=== PATIENT | male | born 1955 | race Caucasian/White ===

== ENCOUNTER → 2017-12-25 09:59 | Outpatient (CLI) | payer MEDICARE, MEDICAID | END | disposition home or self-care (01) | LOC: D.MRI 09:59 | DX: M48.02 Spinal stenosis, cervical region (principal); R26.9 Unspecified abnormalities of gait and mobility ==

== ENCOUNTER 2019-12-01 20:24 | Inpatient (IN) | payer MEDICARE, MEDICAID ==
[~2019-12-01] VITALS: Ht 172.7 cm; Wt 117.9 kg
[2019-12-01 21:30] VITALS: BP 105/52
[2019-12-01 22:02] LABS: BASOPHILS 0.1 % (0-2); EOSINOPHILS 0 % (0-7); HEMATOCRIT 31.8 % (42.0-54.0); HEMOGLOBIN 10.9 g/dL (13.5-17.5); IMMATURE GRANULOCYTES 0.6 % (0-5); LYMPHOCYTES 8.5 % (15-50); MCH 33.6 pg (26.0-34.0); MCHC 34.3 g/dL (31.0-37.0); MCV 98.1 fL (80.0-100.0); MONOCYTES 11.9 % (2-11); NEUTROPHILS 78.9 % (40-80); RBC 3.24 10x6/uL (4.20-6.10); RDW 19.1 % (11.5-14.5); WBC 8.2 10x3/uL (4.8-10.8)
[2019-12-01 22:10] LABS: INR 1.4 (0.85-1.17); PROTIME 17.1 SECONDS (11.6-15.0)
[2019-12-01 22:11] LABS: ANION GAP 13.8 mmol/L (8-16); CALCIUM 8.9 mg/dL (8.5-10.1); CARBON DIOXIDE 25.3 mmol/L (21.0-32.0); POTASSIUM - SERUM 5.1 mmol/L (3.5-5.1)
[2019-12-01] MEDS ORDERED: NEURONTIN600 MG PO (22:23)
[2019-12-01] MEDS ORDERED: K-TAB10 MEQ PO (22:24)
[2019-12-01] MEDS ORDERED: FLOMAX0.4 MG PO (22:24)
[2019-12-01] MEDS ORDERED: SENSIPAR60 MG PO (22:24)
[2019-12-01] MEDS ORDERED: LASIX40 MG PO (22:24)
[2019-12-01] MEDS ORDERED: OMEPRAZOLE20 M1 PO (22:25)
[2019-12-01] MEDS ORDERED: CELEXA20 MG PO (22:25)
[2019-12-01] MEDS ORDERED: XIGDUO XR 5 MG1 EACH PO (22:25)
[2019-12-01] MEDS ORDERED: TRAZODONE HCL150 MG PO (22:26)
[2019-12-01] MEDS ORDERED: ZANAFLEX4 MG PO (22:26)
[2019-12-01] MEDS ORDERED: ROPINIROLE HCL0.5 MG PO (22:26)
[2019-12-01 22:29] LABS: PLATELET COUNT 35 10x3/uL (130-400); PLATELET ESTIMATE DECREASED
[2019-12-01 22:30] VITALS: BP 106/45
[2019-12-01 22:34] LABS: ALBUMIN 2.4 g/dL (3.4-5.0); BILIRUBIN - TOTAL 2.45 mg/dL (0.2-1.3); C-REACTIVE PROTEIN 4.2 mg/dL (0.0-0.9); MAGNESIUM - SERUM 1.2 mg/dL (1.8-2.4); PROTEIN - SERUM 5.4 g/dL (6.4-8.2); THYROID STIMULATING HORMONE 2.33 uIU/mL (0.36-3.74)
[2019-12-01 22:41] LABS: TROPONIN-I 0.066 ng/mL (0.000-0.060)
[2019-12-01 23:30] VITALS: BP 124/52
--- NOTE | 2019-12-02 00:59 | NUR ---
RECIEVED REPORT FROM JONA VALENZUELA IN ER. ARRIVED TO FLOOR ON STRETCHER. ORIENTED AND LETHARGIC. ATTEMPTED TO CALL SPOUSE FOR INFORMATION ON MEDICATION. PT DOES NOT KNOW HIS MEDICATIONS OR WHAT TIME HE LAST TOOK THEM. SAID HIS DOES THAT. WILL ATTEMPT TO CALL HER BACK LATER.
[2019-12-02] MEDS ORDERED: ALDACTONE25 MG PO (01:13)
[2019-12-02] MEDS ORDERED: XIFAXAN550 MG PO (01:14)
[2019-12-02] MEDS ORDERED: PHENERGAN25 M1 PO (01:15)
[2019-12-02] MEDS ORDERED: HYDROCODON-ACE1 EA10 PO (01:18)
[2019-12-02] MEDS ORDERED: SYMBICORT 80-10.2 GM INH (01:27)
[2019-12-02] MEDS ORDERED: CHRONULAC30 ML PO (01:28)
[2019-12-02 02:29] LABS: UDS - AMPHET NEGATIVE QUAL (NEGATIVE); UDS - BARB NEGATIVE QUAL (NEGATIVE); UDS - BENZO NEGATIVE QUAL (NEGATIVE); UDS - COCAINE NEGATIVE QUAL (NEGATIVE); UDS - OPIATE POSITIVE QUAL (NEGATIVE); UDS - PCP NEGATIVE QUAL (NEGATIVE); UDS - THC NEGATIVE QUAL (NEGATIVE)
[2019-12-02 02:45] LABS: BILIRUBIN NEGATIVE (NEGATIVE); KETONE NEGATIVE (NEGATIVE); NITRITE NEGATIVE (NEGATIVE); UROBILINOGEN NORMAL (NORMAL)
[2019-12-02 02:47] LABS: BACTERIA MODERATE /hpf (NONE SEEN); EPITHELIAL CELLS 0-5 /hpf (0-5); RED CELLS - URINE 0-5 /hpf (0-5)
[2019-12-02 03:10] VITALS: BP 123/54
[2019-12-02 05:31] VITALS: BP 124/52; BMI 39.6
--- NOTE | 2019-12-02 05:41 | NUR ---
JOYCE VALENZUELA FROM ER CAME OVER AND STARTED IV WITH ATTEMPTS X2.
[2019-12-02 08:32] VITALS: BP 119/54
[2019-12-02 09:54] VITALS: Ht 172.7 cm; Wt 117.9 kg
[2019-12-02 11:02] LABS: CKMB 0.5 U/L (0.0-3.6); CREATINE KINASE 31 UL (21-232); TROPONIN-I 0.027 ng/mL (0.000-0.060)
[2019-12-02 12:37] VITALS: BP 137/57
[2019-12-02 18:05] LABS: CKMB 0.5 U/L (0.0-3.6); CREATINE KINASE 28 UL (21-232); TROPONIN-I 0.025 ng/mL (0.000-0.060)
[2019-12-02 21:29] VITALS: BP 125/62
[2019-12-02 23:22] LABS: CKMB 0.5 U/L (0.0-3.6); CREATINE KINASE 20 UL (21-232); TROPONIN-I 0.029 ng/mL (0.000-0.060)
[2019-12-03 04:00] VITALS: BP 112/58
[2019-12-03 06:33] LABS: BASOPHILS 0.1 % (0-2); EOSINOPHILS 0.1 % (0-7); HEMATOCRIT 27.3 % (42.0-54.0); HEMOGLOBIN 9.2 g/dL (13.5-17.5); IMMATURE GRANULOCYTES 0.6 % (0-5); LYMPHOCYTES 12.8 % (15-50); MCH 32.7 pg (26.0-34.0); MCHC 33.7 g/dL (31.0-37.0); MCV 97.2 fL (80.0-100.0); MEAN PLATELET VOLUME 13.2 fL (7.4-10.4); MONOCYTES 7.8 % (2-11); NEUTROPHILS 78.6 % (40-80); RBC 2.81 10x6/uL (4.20-6.10); RDW 19.2 % (11.5-14.5); WBC 8.3 10x3/uL (4.8-10.8)
[2019-12-03 06:40] LABS: ALBUMIN 2.3 g/dL (3.4-5.0); ANION GAP 14.2 mmol/L (8-16); BILIRUBIN - TOTAL 1.27 mg/dL (0.2-1.3); CALCIUM 9.3 mg/dL (8.5-10.1); CARBON DIOXIDE 24.4 mmol/L (21.0-32.0); POTASSIUM - SERUM 4.6 mmol/L (3.5-5.1); PROTEIN - SERUM 5.4 g/dL (6.4-8.2)
[2019-12-03 06:57] LABS: PLATELET COUNT 40 10x3/uL (130-400)
[2019-12-03 08:35] VITALS: BP 142/72
[2019-12-03 11:46] VITALS: BP 120/53
[2019-12-03 16:11] VITALS: BP 103/97
--- NOTE | 2019-12-03 19:30 | NUR ---
REPORT RECEVIED, WILL CONT POC. PT A&O, UP IN BED WATCHING TV. NO S/S OF DISTRESSED OBSERVED. RR EVEN AND UNLABORED ON RA. PT DENIES NEEDS AT THIS TIME. BED LOCKED AND LOWERED, CALL LIGHT IN REACH. WILL CONT TO MONITOR.
[2019-12-03 19:36] VITALS: BP 99/43
[2019-12-03 23:59] VITALS: BP 105/66
[2019-12-04 06:03] VITALS: BP 114/59
[2019-12-04 06:42] LABS: ALBUMIN 2.4 g/dL (3.4-5.0); ANION GAP 14.8 mmol/L (8-16); BILIRUBIN - TOTAL 0.94 mg/dL (0.2-1.3); CALCIUM 8.4 mg/dL (8.5-10.1); CARBON DIOXIDE 24.2 mmol/L (21.0-32.0); CREATININE - SERUM 1.7 mg/dL (0.6-1.3); PROTEIN - SERUM 5.4 g/dL (6.4-8.2)
[2019-12-04 06:50] LABS: BASOPHILS 0.7 % (0-2); EOSINOPHILS 0.1 % (0-7); HEMATOCRIT 28.3 % (42.0-54.0); HEMOGLOBIN 9.5 g/dL (13.5-17.5); IMMATURE GRANULOCYTES 0.5 % (0-5); LYMPHOCYTES 12.8 % (15-50); MCH 32.9 pg (26.0-34.0); MCHC 33.6 g/dL (31.0-37.0); MCV 97.9 fL (80.0-100.0); MEAN PLATELET VOLUME 12.4 fL (7.4-10.4); MONOCYTES 4.7 % (2-11); NEUTROPHILS 81.2 % (40-80); RBC 2.89 10x6/uL (4.20-6.10); RDW 19.3 % (11.5-14.5); WBC 7.3 10x3/uL (4.8-10.8)
[2019-12-04 07:08] LABS: PLATELET COUNT 47 10x3/uL (130-400)
[2019-12-04 07:52] LABS: PLATELET ESTIMATE DECREASED
[2019-12-04 08:15] VITALS: BP 115/67
[2019-12-04] MEDS ORDERED: MEDROL DOSE PACK4 MG PO (08:18)
[2019-12-04] MEDS ORDERED: ZITHROMAX250 MG PO (08:19)
--- NOTE | 2019-12-04 12:05 | MORECARE ---
CASE MANAGEMENT DISCHARGE SUMMARY PATIENT: ZAINA LEVY UNIT: [id number] ADM DATE: 12/01/19 AGE: 64 : 59 SEX: M ROOM/BED: D.2139 AUTHOR: JENNA MAYERS PHYSICIAN: REFERRING PHYSICIAN: RACHAEL BENOIT MD DATE OF SERVICE: 12/04/19 Discharge Plan Patient Name: ZAINA LEVY Facility: [facility]:[place] : 1955 Planned Disposition: Home Health Service Anticipated Discharge Date: 12/04/19 Discharge Date: Expected LOS: 3 Initial Reviewer: [email or web address] Initial Review Date: 12/01/2019 Generated: 12/04/19 1:05 pm Patient Name: ZAINA LEVY Page [id number] at 1205 All edits/amendments must be made on the electronic document DICTATION DATE: 12/04/19 1205 TOWER SUPERVISOR: HAKEEM 12/04/19 1205 RPT#: [id number] DC DATE: STATUS: ADM IN [facility] [address] [place] [address] END OF REPORT
--- NOTE | 2019-12-04 12:19 | MORECARE ---
CASE MANAGEMENT DISCHARGE SUMMARY PATIENT: ZAINA LEVY UNIT: [id number] ADM DATE: 12/01/19 AGE: 64 : 59 SEX: M ROOM/BED: D.2135 AUTHOR: JENNA MAYERS PHYSICIAN: REFERRING PHYSICIAN: RACHAEL BENOIT MD DATE OF SERVICE: 12/04/19 Discharge Plan Patient Name: ZAINA LEVY Facility: [facility]:[place] : 1955 Planned Disposition: Home Health Service Anticipated Discharge Date: 12/04/19 Discharge Date: Expected LOS: 3 Initial Reviewer: [email or web address] Initial Review Date: 12/01/2019 Generated: 12/04/19 1:18 pm Comments DCP- Discharge Planning Updated by [email or web address]: Ike Pacheco on 12/04/19 11:[address] Spoke with patient and spouse. Informed patient of MD's suggestion for rehabilitation. Patient and spouse both declined to go to rehabilitation or halfway at this time. Patient states that "...today is my anniversary and I want to go home for a few days". Notified patient that when he is ready to go to inpatient rehabilitation, he can notify his physician to coordinate admission to rehab. IMM and declination of SNF and [facility] Rehabilitation forms signed. CM will continue to follow and will assist as needed with dc plans/needs. Last DP export: 12/04/19 11:05 am Patient Name: ZAINA LEVY Page [id number] at 1219 All edits/amendments must be made on the electronic document DICTATION DATE: 12/04/19 1218 ROPE MAKING MACHINE OPERATOR: HAKEEM 12/04/19 1218 RPT#: [id number] DC DATE: STATUS: ADM IN [facility] [address] [place] [address] END OF REPORT
--- NOTE | 2019-12-04 12:19 | NUR ---
PT'S DISCHARGE INSTRUCTIONS REVIEWED AND SIGNED. IV OUT, TELEMETRY REMOVED. PT DECLINING REHAB AND WANTS TO GO HOME.
--- NOTE | 2019-12-04 15:33 | MORECARE ---
CASE MANAGEMENT DISCHARGE SUMMARY PATIENT: ZAINA LEVY UNIT: [id number] ADM DATE: 12/01/19 AGE: 64 : 59 SEX: M ROOM/BED: D.8952 AUTHOR: JENNA MAYERS PHYSICIAN: REFERRING PHYSICIAN: RACHAEL BENOIT MD DATE OF SERVICE: 12/04/19 Discharge Plan Patient Name: ZAINA LEVY Facility: [facility]:[place] : 1955 Planned Disposition: Home Health Service Anticipated Discharge Date: 12/04/19 Discharge Date: 12/04/2019 Expected LOS: 3 Initial Reviewer: [email or web address] Initial Review Date: 12/01/2019 Generated: 12/04/19 4:32 pm Comments DCP- Discharge Planning Updated by [email or web address]: Carmen Kumar on 12/04/19 2:[address] CM spoke with Joanne, with [facility] for resumption of care. faxed required information. poke with patient and spouse. Informed patient of MD's suggestion for rehabilitation. Patient and spouse both declined to go to rehabilitation or [facility] at this time. Patient states that "...today is my anniversary and I want to go home for a few days". Notified patient that when he is ready to go to inpatient rehabilitation, he can notify his physician to coordinate admission to rehab. IMM and declination of SNF and [facility] Rehabilitation forms signed. CM will continue to follow and will assist as needed with dc plans/needs. External Providers External Provider: [facility] Next Contact Date: Service Request Date: Service Type: Resolution: Reviewer: Comments: Coverage Notice Reviewer: [email or web address] Arlen Pacheco Notice Issued Date-Time: 12/04/2019 12:16 Notice Type: Patient Choice Letter Notice Delivered To: Patient Relationship to Patient: Salesperson Men'S Furnishings Name: Delivery Method: HAND - Hand Delivered Tamie Days: Prior Verbal Notification: Recipient Understood Notice: Yes Recipient Signature: Yes Med Rec Note Co-signed by Attending: Coverage Notice Comment: Refusal for Inpatient Rehabilitation and Fdc services Reviewer: [id number] Arlen Pacheco Notice Issued Date-Time: 12/04/2019 12:16 Notice Type: IM Discharge Notice Notice Delivered To: Patient Relationship to Patient: Salesperson Men'S Furnishings Name: Delivery Method: HAND - Hand Delivered Tamie Days: Prior Verbal Notification: Recipient Understood Notice: Yes Recipient Signature: Yes Med Rec Note Co-signed by Attending: Coverage Notice Comment: IMM Last DP export: 12/04/19 11:19 am Patient Name: ZAINA LEVY Page [phone] at 1533 All edits/amendments must be made on the electronic document DICTATION DATE: 12/04/19 153 CRYSTAL REPORT DEVELOPER: HAKEEM 12/04/19 153 RPT#: [id number] DC DATE:12/04/19 STATUS: DIS IN [facility] [address] [place] [address] END OF REPORT
--- NOTE | 2019-12-04 15:58 | MORECARE ---
CASE MANAGEMENT DISCHARGE SUMMARY PATIENT: ZAINA LEVY UNIT: [id number] ADM DATE: 12/01/19 AGE: 64 : 59 SEX: M ROOM/BED: D.7205 AUTHOR: JENNA MAYERS PHYSICIAN: REFERRING PHYSICIAN: RACHAEL BENOIT MD DATE OF SERVICE: 12/04/19 Discharge Plan Patient Name: ZAINA LEVY Facility: [facility]:[place] : 1955 Planned Disposition: Home Health Service Anticipated Discharge Date: 12/04/19 Discharge Date: 12/04/2019 Expected LOS: 3 Initial Reviewer: [id number] Initial Review Date: 12/01/2019 Generated: 12/04/19 4:57 pm Comments DCP- Discharge Planning Updated by [id number]: Carmen Kumar on 12/04/19 2:[address] poke with patient and spouse. Informed patient of MD's suggestion for rehabilitation. Patient and spouse both declined to go to rehabilitation or [facility] at this time. Patient states that "...today is my anniversary and I want to go home for a few days". Notified patient that when he is ready to go to inpatient rehabilitation, he can notify his physician to coordinate admission to rehab. IMM and declination of SNF and [facility] Rehabilitation forms signed. CM will continue to follow and will assist as needed with dc plans/needs. Coverage Notice Reviewer: [email or web address] Arlen Pacheco Notice Issued Date-Time: 12/04/2019 12:16 Notice Type: Patient Choice Letter Notice Delivered To: Patient Relationship to Patient: Claim Service Representative Name: Delivery Method: HAND - Hand Delivered Tamie Days: Prior Verbal Notification: Recipient Understood Notice: Yes Recipient Signature: Yes Med Rec Note Co-signed by Attending: Coverage Notice Comment: Refusal for Inpatient Rehabilitation and Long-Term services Reviewer: [id number] - Ike Pacheco Notice Issued Date-Time: 12/04/2019 12:16 Notice Type: IM Discharge Notice Notice Delivered To: Patient Relationship to Patient: Claim Service Representative Name: Delivery Method: HAND - Hand Delivered Tamie Days: Prior Verbal Notification: Recipient Understood Notice: Yes Recipient Signature: Yes Med Rec Note Co-signed by Attending: Coverage Notice Comment: IMM Last DP export: 12/04/19 2:33 pm Patient Name: ZAINA LEVY Page [phone] at 1558 All edits/amendments must be made on the electronic document DICTATION DATE: 12/04/191556 PROGRAM REP: HAKEEM 12/04/191556 RPT#: [id number] DC DATE:12/04/19 STATUS: DIS IN [place] [id number] [place] [address] END OF REPORT
--- NOTE | 2019-12-04 16:12 | MORECARE ---
CASE MANAGEMENT DISCHARGE SUMMARY PATIENT: ZAINA LEVY UNIT: [id number] ADM DATE: 12/01/19 AGE: 64 : 59 SEX: M ROOM/BED: D.8507 AUTHOR: TALIB,DOC PHYSICIAN: REFERRING PHYSICIAN: RACHAEL BENOIT MD DATE OF SERVICE: 12/04/19 Discharge Plan Patient Name: ZAINA LEVY Facility: [facility]:[place] : 1955 Planned Disposition: Home Health Service Anticipated Discharge Date: 12/04/19 Discharge Date: 12/04/2019 Expected LOS: 3 Initial Reviewer: [email or web address] Initial Review Date: 12/01/2019 Generated: 12/04/19 5:12 pm Comments DCP- Discharge Planning Updated by [id number]: Carmen Kumar on 12/04/19 2:[address] poke with patient and spouse. Informed patient of MD's suggestion for rehabilitation. Patient and spouse both declined to go to rehabilitation or residential at this time. Patient states that "...today is my anniversary and I want to go home for a few days". Notified patient that when he is ready to go to inpatient rehabilitation, he can notify his physician to coordinate admission to rehab. IMM and declination of SNF and [facility] Rehabilitation forms signed. CM will continue to follow and will assist as needed with dc plans/needs. DCPIA - Discharge Planning Initial Assessment Updated by [id number]: Carmen Kumar on 12/04/19 4:09 pm * Is the patient Alert and Oriented? Yes * PCP Dr. Benoit [facility] * Preadmission Environment Home with Family * ADLs Partial Dependent * Equipment Cane Rolling Walker Wheelchair * List name and contact numbers for known caregivers / representatives who currently or will assist patient after discharge: Eren Levy () [phone] * Verbal permission to speak to the caregivers and representatives has been obtained from the patient. Yes * Community resources currently utilized Home Health * Please name any agencies selected above. [facility] * Additional services required to return to the preadmission environment? Yes * Can the patient safely return to the preadmission environment? Yes * Has this patient been hospitalized within the prior 30 days at any hospital? No Coverage Notice Reviewer: [id number] Arlen Pacheco Notice Issued Date-Time: 12/04/2019 12:16 Notice Type: Patient Choice Letter Notice Delivered To: Patient Relationship to Patient: Psychology Tech Name: Delivery Method: HAND - Hand Delivered Tamie Days: Prior Verbal Notification: Recipient Understood Notice: Yes Recipient Signature: Yes Med Rec Note Co-signed by Attending: Coverage Notice Comment: Refusal for Inpatient Rehabilitation and Correction services Reviewer: [id number] Arlen Pacheco Notice Issued Date-Time: 12/04/2019 12:16 Notice Type: IM Discharge Notice Notice Delivered To: Patient Relationship to Patient: Psychology Tech Name: Delivery Method: HAND - Hand Delivered Tamie Days: Prior Verbal Notification: Recipient Understood Notice: Yes Recipient Signature: Yes Med Rec Note Co-signed by Attending: Coverage Notice Comment: IMM Last DP export: 12/04/19 2:58 pm Patient Name: ZAINA LEVY Page [phone] at 1612 All edits/amendments must be made on the electronic document DICTATION DATE: 12/04/19 1612 ENTRY LEVEL SOFTWARE ENGINEER: HAKEEM 12/04/19 1612 RPT#: [id number] DC DATE:12/04/19 STATUS: DIS IN [facility] [address] [place] [address] END OF REPORT
--- NOTE | 2019-12-04 16:40 | MORECARE ---
CASE MANAGEMENT DISCHARGE SUMMARY PATIENT: ZAINA LEVY UNIT: [id number] ADM DATE: 12/01/19 AGE: 64 : 59 SEX: M ROOM/BED: D.0506 AUTHOR: TALIBDOC PHYSICIAN: REFERRING PHYSICIAN: RACHAEL BENOIT MD DATE OF SERVICE: 12/04/19 Discharge Plan Patient Name: ZAINA LEVY Facility: [facility]:[place] : 1955 Planned Disposition: Home Health Service Anticipated Discharge Date: 12/04/19 Discharge Date: 12/04/2019 Expected LOS: 3 Initial Reviewer: [email or web address] Initial Review Date: 12/01/2019 Generated: 12/04/19 5:39 pm Comments DCP- Discharge Planning Updated by [id number]: Carmen Kumar on 12/04/19 3:[address] CM met with patient regarding DC plans. Patient is in agreement with same. Patient lives independently with his , Eren Levy ([phone]). PCP: Dr. Benoit. [facility] DME: [facility], w/c, shower chair. CM discussed HHS, SNF, Rehab services. Patient [facility] with [facility] to resume. Patient's spouse will drive him home upon DC. CM contacted Joanne, with [facility] and faxed required information. CM is available for DC plans PRN. Patient was recently discharged from [facility] approximately one month ago. No other needs voiced. DCP- Discharge Planning Updated by [email or web address]: Carmen Kumar on 12/04/19 2:[address] poke with patient and spouse. Informed patient of MD's suggestion for rehabilitation. Patient and spouse both declined to go to rehabilitation or intermediate at this time. Patient states that "...today is my anniversary and I want to go home for a few days". Notified patient that when he is ready to go to inpatient rehabilitation, he can notify his physician to coordinate admission to rehab. IMM and declination of SNF and [facility] forms signed. CM will continue to follow and will assist as needed with dc plans/needs. DCPIA - Discharge Planning Initial Assessment Updated by [email or web address]: Carmen Winnlroy on 12/04/19 4:09 pm * Is the patient Alert and Oriented? Yes * PCP Dr. Benoit * [facility] * Preadmission Environment Home with Family * ADLs Partial Dependent * Equipment Cane Rolling Walker Wheelchair * List name and contact numbers for known caregivers / representatives who currently or will assist patient after discharge: Eren Levy () [phone] * Verbal permission to speak to the caregivers and representatives has been obtained from the patient. Yes * Community resources currently utilized Home Health * Please name any agencies selected above. [facility] * Additional services required to return to the preadmission environment? Yes * Can the patient safely return to the preadmission environment? Yes * Has this patient been hospitalized within the prior 30 days at any hospital? No Coverage Notice Reviewer: [id number] Arlen Pacheco Notice Issued Date-Time: 12/04/2019 12:16 Notice Type: Patient Choice Letter Notice Delivered To: Patient Relationship to Patient: Automotive Welder Name: Delivery Method: HAND - Hand Delivered Tamie Days: Prior Verbal Notification: Recipient Understood Notice: Yes Recipient Signature: Yes Med Rec Note Co-signed by Attending: Coverage Notice Comment: Refusal for Inpatient Rehabilitation and Fdc services Reviewer: [id number] Arlen Pacheco Notice Issued Date-Time: 12/04/2019 12:16 Notice Type: IM Discharge Notice Notice Delivered To: Patient Relationship to Patient: Automotive Welder Name: Delivery Method: HAND - Hand Delivered Tamie Days: Prior Verbal Notification: Recipient Understood Notice: Yes Recipient Signature: Yes Med Rec Note Co-signed by Attending: Coverage Notice Comment: IMM Last DP export: 12/04/19 3:12 pm Patient Name: ZAINA LEVY Page [phone] at 1640 All edits/amendments must be made on the electronic document DICTATION DATE: 12/04/19 1639 ELECTRIFIER OPERATOR: HAKEEM 12/04/19 1639 RPT#: [id number] DC DATE:12/04/19 STATUS: DIS IN [facility] [address] [place] [address] END OF REPORT
== END 2019-12-04 12:21 | disposition home health service (06) | DRG 190 ==
LOC: D.ER 20:24 → D.M2 22:48
PROVIDERS: Family Medicine; ADMIT Family Medicine; ATTEND Family Medicine
DX: J44.0 Chronic obstructive pulmonary disease with (acute) lower respiratory infection (principal); J18.9 Pneumonia, unspecified organism; N39.0 Urinary tract infection, site not specified; J44.1 Chronic obstructive pulmonary disease with (acute) exacerbation; D69.6 Thrombocytopenia, unspecified; K74.60 Unspecified cirrhosis of liver; N18.9 Chronic kidney disease, unspecified; Z87.891 Personal history of nicotine dependence; E66.01 Morbid (severe) obesity due to excess calories; Z68.39 Body mass index [BMI] 39.0-39.9, adult

== ENCOUNTER 2019-12-27 15:12 | Inpatient (IN) | payer MEDICARE, MEDICAID ==
[~2019-12-27] VITALS: Ht 172.7 cm; Wt 115.1 kg
[~2019-12-27 15:12] MED LIST: ALDACTONE25 MG PO; CELEXA20 MG PO; CHRONULAC30 ML PO; FLOMAX0.4 MG PO; HYDROCODON-ACE1 EA10 PO; K-TAB10 MEQ PO; LASIX40 MG PO; MEDROL DOSE PACK4 MG PO; NEURONTIN600 MG PO; OMEPRAZOLE20 M1 PO; PHENERGAN25 M1 PO; ROPINIROLE HCL0.5 MG PO; SENSIPAR60 MG PO; SYMBICORT 80-10.2 GM INH; TRAZODONE HCL150 MG PO; XIFAXAN550 MG PO; XIGDUO XR 5 MG1 EACH PO; ZANAFLEX4 MG PO; ZITHROMAX250 MG PO
[2019-12-27 15:47] VITALS: BP 127/59
[2019-12-27 16:06] LABS: APTT 31.7 SECONDS (22.8-39.4); INR 1.22 (0.85-1.17); PROTIME 15.3 SECONDS (11.6-15.0)
[2019-12-27 16:07] LABS: BASOPHILS 0.6 % (0-2); CALC OSMOLALITY 277 mosm/kg (275-300); CARBON DIOXIDE 26.6 mmol/L (21.0-32.0); CHLORIDE - SERUM 103 mmol/L (98-107); EOSINOPHILS 4.5 % (0-7); GLUCOSE 83 mg/dL (74-106); HEMOGLOBIN 10.4 g/dL (13.5-17.5); IMMATURE GRANULOCYTES 2.2 % (0-5); LYMPHOCYTES 45.2 % (15-50); MCH 34.4 pg (26.0-34.0); MCHC 34.7 g/dL (31.0-37.0); MCV 99.3 fL (80.0-100.0); NEUTROPHILS 40.5 % (40-80); POTASSIUM - SERUM 4.3 mmol/L (3.5-5.1); RBC 3.02 10x6/uL (4.20-6.10); RDW 17.8 % (11.5-14.5); SODIUM 138 mmol/L (136-145); UREA NITROGEN 22 mg/dL (7-18); WBC 3.1 10x3/uL (4.8-10.8); eGFR NON AFRICAN AMERICAN 36 mL/min (90-120)
[2019-12-27 16:17] LABS: PLATELET COUNT 40 10x3/uL (130-400)
[2019-12-27 16:24] LABS: ALBUMIN 2.5 g/dL (3.4-5.0); ALKALINE PHOSPHATASE 309 U/L (30-120); ALT (SGPT) 40 U/L (10-68); BILIRUBIN - TOTAL 1.57 mg/dL (0.2-1.3); CREATINE KINASE 49 UL (21-232); MAGNESIUM - SERUM 1.5 mg/dL (1.8-2.4); PRO BNP 212 pg/mL (0-125); PROTEIN - SERUM 5.7 g/dL (6.4-8.2); TROPONIN-I 0.034 ng/mL (0.000-0.060)
[2019-12-27 17:04] VITALS: BP 125/77
--- NOTE | 2019-12-27 18:12 | NUR ---
URINS SAMPLE OBTAINED VIA CASTANON AND SENT TO LAB
[2019-12-27 18:15] LABS: PLATELET ESTIMATE DECREASED
[2019-12-27 18:33] VITALS: BP 91/63
[2019-12-27 18:39] LABS: BILIRUBIN NEGATIVE (NEGATIVE); KETONE NEGATIVE (NEGATIVE); NITRITE NEGATIVE (NEGATIVE); UROBILINOGEN NORMAL mg/dL (< 2)
[2019-12-27 18:40] LABS: BACTERIA MANY HPF (NONE SEEN); WHITE CELLS - URINE 0-5 HPF (0-1)
[2019-12-27 20:38] VITALS: BP 164/60
--- NOTE | 2019-12-27 21:38 | NUR ---
PAGED ADMITTING DR ABOUT PTS ORAL MEDICATION.
--- NOTE | 2019-12-27 22:04 | NUR ---
PROVIDER CONTACTED HOLD PTS PO MEDS. ORDERS FOR LASIX 40 MG IV BID. NS INFUSION DECREASED TO 50 MLS/HR.
[2019-12-27 22:18] VITALS: BP 129/69
[2019-12-27 23:18] VITALS: BP 121/69
[2019-12-28] VITALS (7 sets, daily range): BP systolic 130–148; BP diastolic 61–84; BMI 38.9
--- NOTE | 2019-12-28 00:41 | NUR ---
PT ARRIVED ON UNIT VIA STRETCHER, ESCORTED BY SPOUSE AND ER NURSE. TRANSFERRED TO BED USING SLIDEBOARD. POSITIONED FOR COMFORT. RE-STARTED IV FLUIDS PER ORDER.
--- NOTE | 2019-12-28 00:45 | NUR ---
HOME MEDICATION RECONCILLIATION COMPLETE. COPY OF LIST FROM SPOUSE PLACED IN CHART.
[2019-12-28] MEDS ORDERED: CALCITONIN-SAL3.7 ML NASAL (00:50)
--- NOTE | 2019-12-28 00:55 | NUR ---
APPLIED ELLE'S TO REDNESS ON BUTTOCKS AND TURNED TO RIGHT SIDE USING PILLOW. POSITIONED FOR COMFORT.
--- NOTE | 2019-12-28 01:13 | NUR ---
ADMISSION ASSESSMENT AND HISTORY COMPLETE.
[2019-12-28 07:16] LABS: BASOPHILS 0.6 % (0-2); EOSINOPHILS 2.5 % (0-7); HEMATOCRIT 30.2 % (42.0-54.0); HEMOGLOBIN 10.5 g/dL (13.5-17.5); IMMATURE GRANULOCYTES 1.5 % (0-5); LYMPHOCYTES 38.2 % (15-50); MCH 34.5 pg (26.0-34.0); MCHC 34.8 g/dL (31.0-37.0); MCV 99.3 fL (80.0-100.0); MEAN PLATELET VOLUME 11.2 fL (7.4-10.4); MONOCYTES 6.2 % (2-11); RBC 3.04 10x6/uL (4.20-6.10); RDW 18.2 % (11.5-14.5); WBC 3.3 10x3/uL (4.8-10.8)
[2019-12-28 07:23] LABS: PLATELET COUNT 72 10x3/uL (130-400)
[2019-12-28 07:36] LABS: APTT 28.7 SECONDS (22.8-39.4); INR 1.24 (0.85-1.17); PROTIME 15.5 SECONDS (11.6-15.0)
[2019-12-28 08:56] LABS: ALBUMIN 2.4 g/dL (3.4-5.0); ANION GAP 11.1 mmol/L (8-16); BILIRUBIN - DIRECT 1.04 mg/dL (0.00-0.30); BILIRUBIN - INDIRECT 0.93 mg/dL (0.00-1.00); BILIRUBIN - TOTAL 1.97 mg/dL (0.2-1.3); CALCIUM 9.2 mg/dL (8.5-10.1); CREATININE - SERUM 1.9 mg/dL (0.6-1.3); MAGNESIUM - SERUM 1.6 mg/dL (1.8-2.4); POTASSIUM - SERUM 4.1 mmol/L (3.5-5.1); PROTEIN - SERUM 5.4 g/dL (6.4-8.2); TROPONIN-I 0.044 ng/mL (0.000-0.060)
--- NOTE | 2019-12-28 09:00 | NUR ---
UNRESPONSIVE TO STIMULI WITH RESP EVEN AND UNLABORED. ABDOMEN DISTENDED WITH BOWEL SOUNDS HYPOACTIVE X4 ANTERIOR. CASTANON CATH PATIENT WITH [place] URINE. INCONTINENT OF STOOL WITH PERICARE DONE WITH MEPILEX DRESSING TO COCCYX FOR ERRYTHEMA. TURNED AND REPOSITIONED FOR COMFORT. IVF INFUSING TO RT. F/A W/O ANY S/S OF INFECTION/INFILTRATION. ENCOURZAGED FAMILY TO USE CALL LIGHT FOR ASSSIT.
[2019-12-28 16:21] LABS: BILIRUBIN NEGATIVE (NEGATIVE); KETONE NEGATIVE (NEGATIVE); NITRITE NEGATIVE (NEGATIVE); UROBILINOGEN NORMAL mg/dL (< 2)
[2019-12-28 16:22] LABS: BACTERIA MODERATE HPF (NONE SEEN); EPITHELIAL CELLS 0-5 /hpf (0-5); WHITE CELLS - URINE >50 HPF (0-1)
--- NOTE | 2019-12-28 19:00 | NUR ---
BEDSIDE REPORT RECEIVED AND CARE OF PT ASSUMED. PT LYING IN LOW FRAGOSO'S POSITION WITH EYES CLOSED AND EASY RESPIRATIONS. SALINE LOCKED IV TO RIGHT HAND. IS AT BEDSIDE.
--- NOTE | 2019-12-28 21:41 | NUR ---
HELD PO MEDS PT STILL WITH DECREASED LOC...HE HAS OPENED EYES AND SPOKE AT FEW WORDS TO HIS SPOUSE JACKELYN. WILL CONTINUE TO MONITOR CLOSELY.
[2019-12-29 01:23] VITALS: BP 142/66
[2019-12-29 05:31] VITALS: BP 151/61
[2019-12-29 05:31] LABS: BASOPHILS 0.5 % (0-2); EOSINOPHILS 2.7 % (0-7); HEMATOCRIT 29.3 % (42.0-54.0); HEMOGLOBIN 9.8 g/dL (13.5-17.5); IMMATURE GRANULOCYTES 1.4 % (0-5); LYMPHOCYTES 32.3 % (15-50); MCH 33.7 pg (26.0-34.0); MCHC 33.4 g/dL (31.0-37.0); MCV 100.7 fL (80.0-100.0); MEAN PLATELET VOLUME 11.2 fL (7.4-10.4); MONOCYTES 8.7 % (2-11); NEUTROPHILS 54.4 % (40-80); RBC 2.91 10x6/uL (4.20-6.10); RDW 18.4 % (11.5-14.5)
[2019-12-29 05:38] LABS: WBC 4.2 10x3/uL (4.8-10.8)
[2019-12-29 05:39] LABS: PLATELET COUNT 58 10x3/uL (130-400)
[2019-12-29 05:50] LABS: ALBUMIN 2.4 g/dL (3.4-5.0); ANION GAP 13.9 mmol/L (8-16); BILIRUBIN - TOTAL 1.94 mg/dL (0.2-1.3); CALCIUM 9.3 mg/dL (8.5-10.1); CARBON DIOXIDE 25.3 mmol/L (21.0-32.0); CREATININE - SERUM 2.1 mg/dL (0.6-1.3); POTASSIUM - SERUM 4.2 mmol/L (3.5-5.1); PROTEIN - SERUM 5.2 g/dL (6.4-8.2)
[2019-12-29 08:36] VITALS: BP 137/77
--- NOTE | 2019-12-29 09:00 | NUR ---
PATIENT ALWAKE AND ORIENTED X3. ABLE TO TAKE MEDS WHOLE AND EAT BREAKFAST WITH ASSIST. GENERALIZED EDEMA NOTED TO BUE AND BLE. IV S/L TO RIGHT HAND WITH NO S/S OF INFECTION/INFILTRATION INCONTINENT OF STOOL WITH MODERATE SOFT BM NOTED WITH PERICARE DONE AND REPOSITIONED FOR COMFORT. FAMILY PRESENT AND ENCOURAGED TO USE CALL LIGHT FOR ASSSIT.
--- NOTE | 2019-12-29 11:00 | NUR ---
PATIENT RECEIVED PARENCENTESIS WITH STAFF STATING REMOVED OF 15OOCC FLUID. NO CHANGE IN COGNITION AT THIS TIME AND STABLE.
[2019-12-29 11:59] LABS: PROTEIN - BODY FLUID 0.5 G/DL
[2019-12-29 12:02] LABS: NEUT - BF 16 %
[2019-12-29 12:03] LABS: MACROPHAGES BF 21 %
[2019-12-29 16:22] VITALS: BP 147/62
--- NOTE | 2019-12-29 19:00 | NUR ---
BEDSIDE REPORT RECEIVED AND CARE OF PT ASSUMED. PT LYING IN LOW FRAGOSO'S POSITION VISITING WITH SPOUSE. PT ALERT AND ORIENTED AND EATING FOOD BROUGHT BY SPOUSE AT THIS TIME. IV TO RIGHT HAND SALINE LOCKED. CASTANON CATHETER DRAINING TO GRAVITY WITH YELLOW URINE IN COLLECTION BAG. WILL MONITOR FOR NEEDS.
--- NOTE | 2019-12-29 20:31 | NUR ---
HS MEDICATIONS GIVEN...PT ABLE TO SWALLOW MEDS AND WATER WITHOUT DIFFICULTY. GAVE NICOTINE PATCH TO LEFT DELTOID PER PT REQUEST.
[2019-12-29 21:08] VITALS: BP 136/67
--- NOTE | 2019-12-30 00:15 | NUR ---
PT REQUESTING PAIN MEDICATION FOR LEFT SHOULDER PAIN. EXPLAINED THAT MD HAS PLACED HOLD ON ALL SEDATING MEDICATIONS. MADE HOT COMPRESS TO PLACED ON SHOULDER. WILL CONTINUE TO MONITOR FOR NEEDS.
[2019-12-30 01:22] VITALS: BP 124/58
[2019-12-30 05:30] VITALS: BP 143/56
[2019-12-30 06:15] LABS: ALBUMIN 2.2 g/dL (3.4-5.0); ANION GAP 10.3 mmol/L (8-16); BILIRUBIN - TOTAL 1.61 mg/dL (0.2-1.3); CALCIUM 9.3 mg/dL (8.5-10.1); CARBON DIOXIDE 26.7 mmol/L (21.0-32.0); PROTEIN - SERUM 5.3 g/dL (6.4-8.2)
[2019-12-30 07:24] LABS: BASOPHILS 0.4 % (0-2); HEMATOCRIT 28.2 % (42.0-54.0); HEMOGLOBIN 9.3 g/dL (13.5-17.5); IMMATURE GRANULOCYTES 2.9 % (0-5); LYMPHOCYTES 32.4 % (15-50); MCH 33.5 pg (26.0-34.0); MCV 101.4 fL (80.0-100.0); MEAN PLATELET VOLUME 11.3 fL (7.4-10.4); MONOCYTES 9.9 % (2-11); NEUTROPHILS 52.4 % (40-80); RBC 2.78 10x6/uL (4.20-6.10); RDW 18.4 % (11.5-14.5); WBC 4.5 10x3/uL (4.8-10.8)
[2019-12-30 07:29] LABS: PLATELET COUNT 47 10x3/uL (130-400)
--- NOTE | 2019-12-30 07:43 | NUR ---
PATIENT IN BED, FAMILY AT BEDSIDE. DENIES NEEDS AT THIS TIME. FREE FROM SIGNS OF DISTRESS. WILL CONTINUE TO MONITOR.
[2019-12-30 09:05] VITALS: BP 140/56
[2019-12-30 12:47] VITALS: BP 126/51
--- NOTE | 2019-12-30 13:08 | NUR ---
Nutrition follwo-up: Pt receiving a renal diet; po intake is improving as pt is eating food from spouse. Wt: 255# Pt much more alert today. Labs reviewed Will continue to provide food choices and honor food preferences within diet restrictions. RDN following.
[2019-12-30 15:00] VITALS: BP 158/92
--- NOTE | 2019-12-30 19:00 | NUR ---
BEDSIDE REPORT RECEIVED AND CARE OF PT ASSUMED. PT LYING IN HIGH FRAGOSO'S POSITION VISIGINT WITH SPOUSE. IV TO RIGHT HAND PATENT WITH NS INFUSING AT KVO. CASTANON CATHETER DRAINING TO GRAVITY WITH YELLOW URINE IN COLLECTION BAG. WILL MONITOR FOR NEEDS. IS AT BEDSIDE.
[2019-12-30 20:31] VITALS: BP 128/58
[2019-12-31 00:29] VITALS: BP 118/51
[2019-12-31 04:00] VITALS: BP 124/60
[2019-12-31 05:10] LABS: ALBUMIN 2.2 g/dL (3.4-5.0); ANION GAP 10.4 mmol/L (8-16); BILIRUBIN - TOTAL 1.34 mg/dL (0.2-1.3); CALCIUM 9.1 mg/dL (8.5-10.1); CARBON DIOXIDE 27.6 mmol/L (21.0-32.0); CREATININE - SERUM 2.1 mg/dL (0.6-1.3); PROTEIN - SERUM 5.1 g/dL (6.4-8.2)
[2019-12-31 06:17] LABS: BASOPHILS 0.3 % (0-2); EOSINOPHILS 3.2 % (0-7); HEMATOCRIT 26.3 % (42.0-54.0); HEMOGLOBIN 8.9 g/dL (13.5-17.5); IMMATURE GRANULOCYTES 3.8 % (0-5); LYMPHOCYTES 32.7 % (15-50); MCH 34.4 pg (26.0-34.0); MCHC 33.8 g/dL (31.0-37.0); MCV 101.5 fL (80.0-100.0); MEAN PLATELET VOLUME 11.1 fL (7.4-10.4); RBC 2.59 10x6/uL (4.20-6.10); RDW 18.1 % (11.5-14.5)
[2019-12-31 06:18] LABS: WBC 3.2 10x3/uL (4.8-10.8)
[2019-12-31 06:28] LABS: PLATELET COUNT 45 10x3/uL (130-400)
[2019-12-31 06:40] LABS: PLATELET ESTIMATE DECREASED
--- NOTE | 2019-12-31 07:00 | NUR ---
RESTING IN BED WITH EYES CLOSED. RESPIRATIONS EVEN AND UNLABORED. NO S/S OF ACUTE DISTRESS NOTED. POD #1 PARACENTESIS. CASTANON CATHETER PRESENT. IV TO RIGHT HAND, NS INFUSING @ KVO. SITE PATENT WITHOUT REDNESS OR SWELLING. SCDS ON. CALL LIGHT IN REACH. WILL CONTINUE TO MONITOR.
[2019-12-31 08:23] VITALS: BP 132/59
--- NOTE | 2019-12-31 10:18 | NUR ---
I have reviewed this patient and I concur with the Shift Assessment completed by the Licensed Practical Nurse today this shift.
[2019-12-31 11:54] VITALS: BP 120/62
[2019-12-31 17:34] VITALS: BP 142/78
--- NOTE | 2019-12-31 17:55 | NUR ---
SITTING UP IN BED EATING SUPPER. NO C/O PAIN. NO S/S OF ACUTE DISTRESS NOTED. AT BEDSIDE. DENIES ANY NEEDS AT THIS TIME. CALL LIGHT IN REACH. WILL CONTINUE TO MONITOR.
[2019-12-31 21:26] VITALS: BP 145/53
--- NOTE | 2019-12-31 23:45 | NUR ---
PT IN BED, NO NEEDS NOTED, RESPIRATIONS EVEN/UNLABORED, SAFETY PRECAUTIONS IN PLACE, FLUIDS/CALL LIGHT WITHIN REACH, AT BEDSIDE, IV PATENT, NS AT KVO
[2020-01-01] VITALS: BP 133/56
[2020-01-01 04:00] VITALS: BP 123/49
[2020-01-01 06:39] LABS: BASOPHILS 0.3 % (0-2); EOSINOPHILS 2.5 % (0-7); HEMATOCRIT 26.6 % (42.0-54.0); HEMOGLOBIN 8.8 g/dL (13.5-17.5); IMMATURE GRANULOCYTES 3.8 % (0-5); LYMPHOCYTES 35.7 % (15-50); MCH 33.3 pg (26.0-34.0); MCHC 33.1 g/dL (31.0-37.0); MCV 100.8 fL (80.0-100.0); MEAN PLATELET VOLUME 10.4 fL (7.4-10.4); MONOCYTES 12.9 % (2-11); NEUTROPHILS 44.8 % (40-80); RBC 2.64 10x6/uL (4.20-6.10); RDW 17.8 % (11.5-14.5); WBC 3.2 10x3/uL (4.8-10.8)
[2020-01-01 06:46] LABS: PLATELET COUNT 46 10x3/uL (130-400)
--- NOTE | 2020-01-01 07:00 | NUR ---
RESTING IN BED WITH EYES CLOSED. RESPIRATIONS EVEN AND UNLABORED. NO S/S OF ACUTE DISTRESS NOTED. CALL LIGHT IN REACH. WILL CONTINUE TO MONITOR.
[2020-01-01 07:13] LABS: ALBUMIN 2.1 g/dL (3.4-5.0); ANION GAP 11.3 mmol/L (8-16); BILIRUBIN - TOTAL 1.15 mg/dL (0.2-1.3); CALCIUM 9.2 mg/dL (8.5-10.1); CARBON DIOXIDE 25.5 mmol/L (21.0-32.0); CREATININE - SERUM 1.9 mg/dL (0.6-1.3); POTASSIUM - SERUM 3.8 mmol/L (3.5-5.1)
[2020-01-01 07:14] LABS: PLATELET ESTIMATE DECREASED
[2020-01-01 08:53] VITALS: BP 128/50
[2020-01-01 12:01] VITALS: BP 130/58
--- NOTE | 2020-01-01 14:03 | NUR ---
OT NOTE: PT PERFORMED MUCH BETTER TODAY COMPARED TO YESTERDAY. HE WAS ABLE TO PERFORM ROLLING FROM SIDE TO SIDE WITH MIN ASSIST; ABLE TO MAINTAIN SIDELYING POSITION FOR SEVERAL MIN ON EACH SIDE WITH MIN ASSIST. SUPINE TO SIT WITH MAX ASSIST. GOOD STATIC BALANCE/POOR DYNAMIC BALANCE. UE AROM EXS WHILE ON EOB. PT INCONT OF BOWEL; PT CLEANED WITH TOTAL ASSIST; ABLE TO FEED SELF WITH SET UP; ABLE TO WASH HANDS AND FACE WITH CLOTH AND SET UP; PT LESS CONFUSED AND MORE CONVERSIVE TODAY. BRYCE LEVI, OTR/L [phone]
--- NOTE | 2020-01-01 15:07 | NUR ---
I have reviewed this patient and I concur with the Shift Assessment completed by the Licensed Practical Nurse today this shift.
[2020-01-01 16:23] VITALS: BP 143/63
[2020-01-01 20:00] VITALS: BP 143/58
--- NOTE | 2020-01-01 20:00 | NUR ---
REPORT RECIEVED AND ROUNDING COMPLETE. PATIENT LAYING IN BED IN HIGH FOWLERS, AT BEDSIDE. PATIENT HAS A RIGHT HAND PIV THAT IS SALINE LOCKED AT THIS TIME, CASTANON CATH IN PLACE WITH URINE IN BAG, PATIENT HAS PITTING EDEMA TO LOWER EXTERMITIES. PATIENT ASKS THAT HIS PAIN MAEDICATIONS BE GIVEN WITH NIGHT TIME MEDICATIONS. WILL FOLLOW PER MAR. NO OTHER NEEDS VOICED AT THIS TIME. NO DISTRESS NOTED. CALL LIGHT WITHIN REACH AND BED IN LOWEST LOCKED POSITION.
[2020-01-02 04:00] VITALS: BP 122/48
[2020-01-02 05:05] LABS: BASOPHILS 0.3 % (0-2); HEMATOCRIT 26.2 % (42.0-54.0); HEMOGLOBIN 8.5 g/dL (13.5-17.5); LYMPHOCYTES 38.5 % (15-50); MCH 32.7 pg (26.0-34.0); MCHC 32.4 g/dL (31.0-37.0); MCV 100.8 fL (80.0-100.0); MONOCYTES 9.4 % (2-11); NEUTROPHILS 45.8 % (40-80); RDW 17.7 % (11.5-14.5); WBC 3.3 10x3/uL (4.8-10.8)
[2020-01-02 05:09] LABS: PLATELET COUNT 46 10x3/uL (130-400)
[2020-01-02 05:24] LABS: ALBUMIN 2.1 g/dL (3.4-5.0); ANION GAP 8.6 mmol/L (8-16); BILIRUBIN - TOTAL 1.18 mg/dL (0.2-1.3); CARBON DIOXIDE 27.1 mmol/L (21.0-32.0); CREATININE - SERUM 1.8 mg/dL (0.6-1.3); POTASSIUM - SERUM 3.7 mmol/L (3.5-5.1); PROTEIN - SERUM 4.9 g/dL (6.4-8.2)
[2020-01-02 09:22] VITALS: BP 119/71
[2020-01-02 13:19] VITALS: BP 132/78
--- NOTE | 2020-01-02 13:47 | NUR ---
OT NOTE: PT DOING VERY WELL TODAY. PT UP IN BED FEEDING SELF WITH SET UP; ABLE TO WASH HANDS AND FACE WITH CLOTH AND SET UP; BED MOB WITH MIN/MOD ASSIST; PT WAS ABLE TO PERFORM SIT TO STAND WITH WALKER AND MIN/MOD ASSIST; ABLE TO TAKE A FEW SIDE STEPS ADN SEVERAL STEPS FORWARD ADN BACKWARDS WTIH ONE REST BREAK. PERFORMED SEVERAL SIT TO STANDS FOR STRENGTH; BACK TO BED WITH MIN ASSIST FOR LE MGMT. ASKED PT ABOUT THE CHARLES LIFT THAT HIS REPORTED HAVING TO USE AT HOME. PT STATED THAT IT WAS ONLY THERE IF HE HAD FALLEN INTO FLOOR BUT THAT HE WAS USUALLY ABLE TO TAKE A FEW STEPS. HE DID REPORT THAT SOME DAYS WERE MUCH BETTER THAN OTHERS. TODAY WAS A VERY GOOD DAY.. WILL GET PT UP TO CHAIR TOMORROW. BRYCE LEVI, OTR/L [phone]
--- NOTE | 2020-01-02 14:50 | MORECARE ---
CASE MANAGEMENT DISCHARGE SUMMARY PATIENT: ZAINA LEVY UNIT: [id number] ADM DATE: 12/27/19 AGE: 64 : 59 SEX: M ROOM/BED: D.2214 AUTHOR: JENNA MAYERS PHYSICIAN: REFERRING PHYSICIAN: RACHAEL BENOIT MD DATE OF SERVICE: 01/02/20 Discharge Plan Patient Name: ZAINA LEVY Facility: [facility]:[place] : 1955 Planned Disposition: Inpatient Rehab Anticipated Discharge Date: Discharge Date: Expected LOS: Initial Reviewer: [id number] Initial Review Date: 12/27/2019 Generated: 01/02/20 3:49 pm Coverage Notice Reviewer: [id number] - Regina Pham Notice Issued Date-Time: 01/02/2020 14:35 Notice Type: Patient Choice Letter Notice Delivered To: Family Member Relationship to Patient: Spouse Supervisor Lump Room Name: BLAISE Delivery Method: HAND - Hand Delivered Tamie Days: Prior Verbal Notification: Recipient Understood Notice: Yes Recipient Signature: Yes Med Rec Note Co-signed by Attending: Coverage Notice Comment: [facility]PATIENT REHAB AT [facility] Patient Name: ZAINA LEVY Page [id number] at 1450 All edits/amendments must be made on the electronic document DICTATION DATE: 01/02/201448 COMPUTER SCIENCE INTERN: HAKEEM 01/02/20 144 RPT#: [id number] DC DATE: STATUS: ADM IN [facility] [address] [place] [address] END OF REPORT
--- NOTE | 2020-01-02 14:58 | MORECARE ---
CASE MANAGEMENT DISCHARGE SUMMARY PATIENT: ZAINA LEVY UNIT: [id number] ADM DATE: 12/27/19 AGE: 64 : 59 SEX: M ROOM/BED: D.2214 AUTHOR: JENNA MAYERS PHYSICIAN: REFERRING PHYSICIAN: RACHAEL BENOIT MD DATE OF SERVICE: 01/02/20 Discharge Plan Patient Name: ZAINA LEVY Facility[facility] : 1955 Planned Disposition: Inpatient Rehab Anticipated Discharge Date: Discharge Date: Expected LOS: Initial Reviewer: [email or web address] Initial Review Date: 12/27/2019 Generated: 01/02/20 3:58 pm DCPIA - Discharge Planning Initial Assessment Updated by [id number]: Regina Pham on 01/02/20 2:52 pm * Is the patient Alert and Oriented? Yes * How many steps to enter\exit or inside your home? RAMP * PCP CY * [facility] [place] * Preadmission Environment Home with Family * ADLs Total Dependent * Equipment Bedside Commode Cane Carola Lift Rolling Walker Shower Chair Walker Wheelchair * List name and contact numbers for known caregivers / representatives who currently or will assist patient after discharge: BLAISE ( ) [phone] * Verbal permission to speak to the caregivers and representatives has been obtained from the patient. N/A * Community resources currently utilized Home Health * Please name any agencies selected above. [facility] * Additional services required to return to the preadmission environment? Yes * Can the patient safely return to the preadmission environment? No * Has this patient been hospitalized within the prior 30 days at any hospital? Yes Coverage Notice Reviewer: [id number] - Regina Pham Notice Issued Date-Time: 01/02/2020 14:35 Notice Type: Patient Choice Letter Notice Delivered To: Family Member Relationship to Patient: Spouse Design Engineer Name: BLAISE Delivery Method: HAND - Hand Delivered Tamie Days: Prior Verbal Notification: Recipient Understood Notice: Yes Recipient Signature: Yes Med Rec Note Co-signed by Attending: Coverage Notice Comment: [facility] FOR INPATIENT REHAB AT [facility] Last DP export: 01/02/20 1:50 p Patient Name: ZAINA LEVY Page 64029 at 1458 All edits/amendments must be made on the electronic document DICTATION DATE: 01/02/201457 GEOMETRICIAN: HAKEEM 01/02/201457 RPT#: [id number] DC DATE: STATUS: ADM IN [facility] [address] [place] [address] END OF REPORT
--- NOTE | 2020-01-02 15:06 | MORECARE ---
CASE MANAGEMENT DISCHARGE SUMMARY PATIENT: ZAINA LEVY UNIT: [id number] ADM DATE: 12/27/19 AGE: 64 : 59 SEX: M ROOM/BED: D.2214 AUTHOR: JENNA MAYERS PHYSICIAN: REFERRING PHYSICIAN: RACHAEL BENOIT MD DATE OF SERVICE: 01/02/20 Discharge Plan Patient Name: ZAINA LEVY Facility: [facility]:[place] : 1955 Planned Disposition: Inpatient Rehab Anticipated Discharge Date: Discharge Date: Expected LOS: Initial Reviewer: [email or web address] Initial Review Date: 12/27/2019 Generated: 01/02/20 4:05 pm Comments DCP- Discharge Planning Updated by [id number]: Regina Pham on 01/02/20 2:[address] Patient Name: ZAINA LEVY Admission Status: ER Accout number: [id number] Admission Date: 12-27-2019 : 1955 Admission Diagnosis:TRANSIENT ALTERATION OF AWARENESS Attending: RACHAEL BENOIT Current LOS: 6 Anticipated DC Date: Planned Disposition: Inpatient Rehab Primary Insurance: [facility] MEDICARE SOLUTIONS Discharge Planning Comments: CM met with patient 's to complete initial dc planning assessment. CM educated patient on the CM role and verbal consent given by patient to complete assessment. Patient lives at home with his where he is total care at this time. stated that he was discharged from [facility] and was so weak and could not walk. She stated that he fell 3 times there. She would like him to go to inpatient rehab here at [facility]. CM discussed availability of home health, rehab services, and medical equipment. He is current with [facility] . Patient has a walker, carola life, walker, wheelchair, shower chair, BSC, and ramp at home. Patient denied known discharge needs at this time. CM will continue to follow and will assist as needed with dc plans/needs. Caustic Liquor Maker: Regina Pham DCPIA - Discharge Planning Initial Assessment Updated by [email or web address]: Regina Pham on 01/02/20 2:52 pm * Is the patient Alert and Oriented? Yes * How many steps to enter\exit or inside your home? RAMP * PCP CY * [facility] [place] * Preadmission Environment Home with Family * ADLs Total Dependent * Equipment Bedside Commode Cane Carola Lift Rolling Walker Shower Chair Walker Wheelchair * List name and contact numbers for known caregivers / representatives who currently or will assist patient after discharge: BLAISE ( ) [phone] * Verbal permission to speak to the caregivers and representatives has been obtained from the patient. N/A * Community resources currently utilized Home Health * Please name any agencies selected above. [facility] * Additional services required to return to the preadmission environment? Yes * Can the patient safely return to the preadmission environment? No * Has this patient been hospitalized within the prior 30 days at any hospital? Yes Coverage Notice Reviewer: [email or web address] Arlen Pham Notice Issued Date-Time: 01/02/2020 14:35 Notice Type: Patient Choice Letter Notice Delivered To: Family Member Relationship to Patient: Spouse Paving Stone Installer Name: BLAISE Delivery Method: HAND - Hand Delivered Tamie Days: Prior Verbal Notification: Recipient Understood Notice: Yes Recipient Signature: Yes Med Rec Note Co-signed by Attending: Coverage Notice Comment: [facility] FOR INPATIENT REHAB AT [facility] Last DP export: 01/02/20 1:58 p Patient Name: ZAINA LEVY Page 19461 at 1506 All edits/amendments must be made on the electronic document DICTATION DATE: 01/02/20 1506 DOOR TECHNICIAN: HAKEEM 01/02/20 1506 RPT#: [id number] DC DATE: STATUS: ADM IN [facility] [address] [place] [address] END OF REPORT
--- NOTE | 2020-01-02 15:32 | NUR ---
Rehab Note- Acute INpatient Rehab prescreen order received. The patient has [facility] insurance and will require a PreAuth prior to an acute inpatient rehab stay. He has a pending OT Eval that will be needed for PreAuth process. Will begin PreAuth process and follow at this time. Spoke with JONATAN Murphy. Thank you for this referral! Linda Ryan RN Clinical Liaison, [facility] Rehab
[2020-01-02 17:42] VITALS: BP 121/52
--- NOTE | 2020-01-02 19:10 | NUR ---
I have reviewed this patient and I concur with the Shift Assessment completed by the Licensed Practical Nurse today this shift.
[2020-01-02 20:00] VITALS: BP 131/61
--- NOTE | 2020-01-02 20:00 | NUR ---
PT LYING IN BED SLEEPING WITHOUT DISTRESS, AT BEDSIDE. DENIES NEEDS. CL IN REACH, WILL CTM
--- NOTE | 2020-01-02 21:00 | NUR ---
REFUSED [facility], STATES HE ALREADY HAD TWO DOSES TODAY AND DR AWAD HAD CHANGED DOSE FROM TID TO BID. STATES PAIN 01/03, GAVE [facility] ORDERED. DENIES OTHER NEEDS. CL IN REACH, WILL CTM
[2020-01-03] VITALS: BP 120/56
[2020-01-03 04:00] VITALS: BP 135/56
--- NOTE | 2020-01-03 07:15 | NUR ---
REC'D IN BED AWAKE AND ALERT. RESP EVEN AND UNLABORED WITH NO DISTRESS NOTED. CAN EXPRESS NEEDS AND WANTS. ASSESSMENT COMPLETED. AND C/L IN REACH AT BEDSIDE.
--- NOTE | 2020-01-03 09:25 | NUR ---
WAS MEDICATED WITH [facility]CO PER REQUEST FOR GENERALIZED PAIN. C/L IN REACH AT BEDSIDE.
[2020-01-03 09:29] VITALS: BP 130/67
--- NOTE | 2020-01-03 10:55 | NUR ---
I have reviewed this patient and I concur with the Shift Assessment completed by the Licensed Practical Nurse today this shift.
[2020-01-03 12:31] VITALS: Ht 172.7 cm; Wt 115.1 kg
[2020-01-03 13:03] VITALS: BP 129/53
--- NOTE | 2020-01-03 13:06 | NUR ---
Rehab Note- Have initated PreAuth and faxed clinicals for review to [facility] for possible inpatient acute rehab stay, Ref#[id number]. Will await determination from [facility] and follow at this time. THank you for this referral! Linda Ryan RN Clinical Liaison, [facility] Rehab
[2020-01-03 16:34] VITALS: BP 136/72
--- NOTE | 2020-01-03 19:10 | NUR ---
RECEIVED REPORT, BREATHING EVEN UNLABORED, CALL LIGHT IN REACH, DENIES NEEDS, BED LOWEST POSITION, NO S/S OF DISTRESS NOTED, A&O X4, IV TO RH SL, CASTANON TO GRAVITY
[2020-01-03 20:00] VITALS: BP 127/67
--- NOTE | 2020-01-03 23:54 | NUR ---
I have reviewed this patient and I concur with the Shift Assessment completed by the Licensed Practical Nurse today this shift.
[2020-01-04 04:00] VITALS: BP 135/59
[2020-01-04 09:21] VITALS: BP 117/57
[2020-01-04 14:25] VITALS: BP 114/76
[2020-01-04 17:14] VITALS: BP 126/36
--- NOTE | 2020-01-04 19:15 | NUR ---
RECEIVED REPORT, ASSUMED CARE, A&OX4, DENIES NEEDS, BED LOWEST POSITION, CALL LIGHT IN REACH, IV PATENT TO , CASTANON TO GRAVITY
[2020-01-04 20:00] VITALS: BP 148/54
[2020-01-05] VITALS: BP 122/41
--- NOTE | 2020-01-05 03:00 | NUR ---
I have reviewed this patient and I concur with the Shift Assessment completed by the Licensed Practical Nurse today this shift.
[2020-01-05 04:00] VITALS: BP 115/56
--- NOTE | 2020-01-05 07:57 | NUR ---
RESTING IN BED, NO DISTRESS NOTED, CASTANON TO GRAVITY, SL IN PLACE, IN ROOM, CONT TO MONITOR
[2020-01-05 08:16] VITALS: BP 106/50
[2020-01-05 12:36] VITALS: BP 129/57
[2020-01-05 16:43] VITALS: BP 131/65
--- NOTE | 2020-01-05 16:59 | NUR ---
PT STATES DOES NOT FEEL LIKE TAKING A BATH RIGHT NOW, WANTS TO TAKE ONE AT BEDTIME.
[2020-01-05 20:00] VITALS: BP 142/55
[2020-01-06] VITALS (8 sets, daily range): BP systolic 108–141; BP diastolic 40–63
--- NOTE | 2020-01-06 03:06 | NUR ---
I have reviewed this patient and I concur with the Shift Assessment completed by the Licensed Practical Nurse today this shift.
[2020-01-06 05:01] LABS: BASOPHILS 0.7 % (0-2); HEMATOCRIT 24.8 % (42.0-54.0); HEMOGLOBIN 8.4 g/dL (13.5-17.5); IMMATURE GRANULOCYTES 4.3 % (0-5); LYMPHOCYTES 26.1 % (15-50); MCH 33.3 pg (26.0-34.0); MCHC 33.9 g/dL (31.0-37.0); MCV 98.4 fL (80.0-100.0); MONOCYTES 13.4 % (2-11); NEUTROPHILS 54.5 % (40-80); RBC 2.52 10x6/uL (4.20-6.10); RDW 16.8 % (11.5-14.5); WBC 4.2 10x3/uL (4.8-10.8)
[2020-01-06 05:04] LABS: INR 1.33 (0.85-1.17); PROTIME 16.4 SECONDS (11.6-15.0)
[2020-01-06 05:05] LABS: APTT 32.5 SECONDS (22.8-39.4)
[2020-01-06 05:09] LABS: CARBON DIOXIDE 27.5 mmol/L (21.0-32.0); CREATININE - SERUM 1.8 mg/dL (0.6-1.3); POTASSIUM - SERUM 4.5 mmol/L (3.5-5.1)
[2020-01-06 05:15] LABS: PLATELET COUNT 44 10x3/uL (130-400)
[2020-01-06 05:16] LABS: PLATELET ESTIMATE DECREASED
--- NOTE | 2020-01-06 07:50 | NUR ---
PT IS RESTING IN BED WITH EYES CLOSED. RESPIRATIONS ARE EVEN AND UNLABORED. PT IS EASILY AROUSED WITH VERBAL STIMULATION. PT IS AAO X 4 UPON AROUSAL AND ANSWERS ALL QUESTIONS APPROPRIATELY. SPEECH IS CLEAR. SPOUSE IS AT BEDSIDE. CASTANON CATHETER NOTED AND DRAINING WITHOUT DIFFICULTY. DARK YELLOW URINE NOTED TO COLLECTION BAG.S TAT LOCK IS IN PLACE TO LEFT UPPER THIGH. PIV TO LEFT WRIST IN PLACE AND FLUSHES WITHOUT DIFFICULTY. DRESSING IS CDI. PIV IS SL AT THIS TIME. BUE WITH GENERALIZED BRUISING AND EDEMA. RADIAL PULSES ARE PALP AND CAP REFILL TO BUE IS < 3. BLE WITH 4+ PITTING EDEMA. PEDAL PULSES ARE NOT PALPABLE. DOPPLER USED AND PULSE IS STRONG AND AUDIBLE. CAP REFILL TO BLE IS < 3. PT DENIES PRESENCE OF NUMBNESS/ TINGLING AT THIS TIME. PT DENIES PRESENCE OF PAIN/N/V/DYSPNEA AT THIS TIME. BED IS IN THE LOWEST POSITION. CALL LIGHT AND BEDSIDE TABLE ARE WITHIN REACH. SIDE RAILS X 2. FALL PRECAUTIONS IN PLACE. PT AND PT SPOUSE DENY FURTHER NEEDS AT THIS TIME. WILL CONT TO MONITOR.
--- NOTE | 2020-01-06 08:36 | NUR ---
CALLED FOR MIDLINE PLACEMENT. ON ARRIVAL, MIDLINE TALKED DISCUSSED WITH PATIENT AND SPOUSE AT BEDSIDE, CONSENT OBTAINED. USING SITE RITE ULTRASOUND, RIGHT UPPER ARM BASILIC VEIN IDENTIFIED. STERILE PREP, DRAPE AND 1% XLOCAINE TO AREA. VJ ACCESSED AND SINGLE LUMEN MIDLINE INSERTED TO 13 CM. LUMEN FLUSHES EASILY AND WITH GOOD BLOOD RETURN. SITE DRESSED WITH STATLOCK, BIOPATCH AND TEGADERM DRESSING. PATIENT TOLERATED WELL WITH LESS THAN 10 ML BLOOD LOSS. JOSE DUBOSE RN
--- NOTE | 2020-01-06 09:00 | NUR ---
PT REPOSITIONED TO LEFT SIDE. PILLOWS USED FOR SUPPORT. FALL PRECAUTIONS IN PLACE. BED IS IN THE LOWEST POSITION. CALL LIGHT AND BEDSIDE TABLE ARE WITHIN REACH. SIDE RAILS X 2. PT AND PT SPOUSE DENY FURTHER NEEDS. WILL CONT TO MONITOR.
--- NOTE | 2020-01-06 11:00 | NUR ---
PT REPOSITIONED TO LEFT SIDE. PILLOWS USED FOR SUPPORT. FALL PRECAUTIONS IN REACH. BED IS IN THE LOWEST POSITION. CALL LIGHT AND BEDSIDE TABLE ARE WITHIN REACH. SIDE RAILS X 2. PT DENIES FURTHER NEEDS. WILL CONT TO MONITOR.
--- NOTE | 2020-01-06 11:05 | NUR ---
Rehab Note- Received a VM from Elisha Munoz with [facility] early AM that the patient was denied per their biomedical engineering technologist Dr. Andrew Cannon that his needs could be met at a lower level of care. A peer to peer can be set up by Deshaun 01/06 @ [id number] by contacting Elisha at [phone] with the MD's name, #, and a good time for the P2P if requested. Notified JONATAN Linda. Thank you for this referral! Linda Ryan RN Clinical Liaison, [facility] Rehab
--- NOTE | 2020-01-06 13:00 | NUR ---
PT REPOSITIONED TO BACK SIDE. PILLOWS USED FOR SUPPORT. FALL PRECAUTIONS IN REACH. BED IS IN THE LOWEST POSITION. CALL LIGHT AND BEDSIDE TABLE ARE WITHIN REACH. SIDE RAILS X 2. PT DENIES FURTHER NEEDS.WILL CONT TO MONITOR.
--- NOTE | 2020-01-06 13:19 | MORECARE ---
CASE MANAGEMENT DISCHARGE SUMMARY PATIENT: ZAINA LEVY UNIT: [id number] ADM DATE: 12/27/19 AGE: 64 : 59 SEX: M ROOM/BED: D.2214 AUTHOR: JENNA MAYERS PHYSICIAN: REFERRING PHYSICIAN: RACHAEL BENOIT MD DATE OF SERVICE: 01/06/20 Discharge Plan Patient Name: ZAINA LEVY Facility: [facility]:[place] : 1955 Planned Disposition: Inpatient Rehab Anticipated Discharge Date: Discharge Date: Expected LOS: Initial Reviewer: [email or web address] Initial Review Date: 12/27/2019 Generated: 01/06/20 2:18 pm Comments DCP- Discharge Planning Updated by [id number]: Regina Pham on 01/06/20 12:[address] received a denial for Inpatient rehab, I have called Elisha at [phone] to set up the P2P. DCP- Discharge Planning Updated by [id number]: Regina Pham on 01/02/20 2:[address] Patient Name: ZAINA LEVY Admission Status: ER Accout number: [id number] Admission Date: 12-27-2019 : 1955 Admission Diagnosis:TRANSIENT ALTERATION OF AWARENESS Attending: RACHAEL BENOIT Current LOS: 6 Anticipated DC Date: Planned Disposition: Inpatient Rehab Primary Insurance: [facility] MEDICARE SOLUTIONS Discharge Planning Comments: CM met with patient 's to complete initial dc planning assessment. CM educated patient on the CM role and verbal consent given by patient to complete assessment. Patient lives at home with his where he is total care at this time. stated that he was discharged from [facility] and was so weak and could not walk. She stated that he fell 3 times there. She would like him to go to inpatient rehab here at [facility]. CM discussed availability of home health, rehab services, and medical equipment. He is current with [facility] . Patient has a walker, carola life, walker, wheelchair, shower chair, BSC, and ramp at home. Patient denied known discharge needs at this time. CM will continue to follow and will assist as needed with dc plans/needs. Mediator: Regina Pham DCPIA - Discharge Planning Initial Assessment Updated by [id number]: Regina Pham on 01/02/20 2:52 pm * Is the patient Alert and Oriented? Yes * How many steps to enter\exit or inside your home? RAMP * PCP CY * Pharmacy [facility] [place] * Preadmission Environment Home with Family * ADLs Total Dependent * Equipment Bedside Commode Cane Carola Lift Rolling Walker Shower Chair Walker Wheelchair * List name and contact numbers for known caregivers / representatives who currently or will assist patient after discharge: BLAISE ( ) [phone] * Verbal permission to speak to the caregivers and representatives has been obtained from the patient. N/A * Community resources currently utilized Home Health * Please name any agencies selected above. [facility] * Additional services required to return to the preadmission environment? Yes * Can the patient safely return to the preadmission environment? No * Has this patient been hospitalized within the prior 30 days at any hospital? Yes Coverage Notice Reviewer: [id number] - Regina Pham Notice Issued Date-Time: 01/02/2020 14:35 Notice Type: Patient Choice Letter Notice Delivered To: Family Member Relationship to Patient: Spouse Boarding Kennel Or Cattery Operator Name: BLAISE Delivery Method: HAND - Hand Delivered Tamie Days: Prior Verbal Notification: Recipient Understood Notice: Yes Recipient Signature: Yes Med Rec Note Co-signed by Attending: Coverage Notice Comment: KENYA FOR INPATIENT REHAB AT [facility] Last DP export: 01/02/20 2:06 p Patient Name: ZAINA LEVY Page [phone] at 1319 All edits/amendments must be made on the electronic document DICTATION DATE: 01/06/20 1319 ULTRASONIC WELDING MACHINE OPERATOR: HAKEEM 01/06/20 1319 RPT#: [id number] DC DATE: STATUS: ADM IN [facility] [address] [place] [address] END OF REPORT
--- NOTE | 2020-01-06 15:00 | NUR ---
PT REPOSITIONED TO RIGHT SIDE. PILLOWS USED FOR SUPPORT. FALL PRECAUTIONS IN PLACE. BED IS IN THE LOWEST POSITION. CALL LIGHT AND BEDSIDE TABLE ARE WITHIN REACH. SIDE RAILS X 2. PT DENIES FURTHER NEEDS. WILL CONT TO MONITOR.
--- NOTE | 2020-01-06 15:06 | NUR ---
OT NOTE: ATTEMPTED IN PM.. AT BEDSIDE.. PT VERY LETHARGIC. DID NOT EVEN AWAKEN FOR LUNCH. PT DID NOT WANT TO PARTICIPATE IN TMT TODAY.. UNSURE WHY HE WAS SO LETHARGIC. WILL ATTEMPT TOMORROW. BRYCE LEVI, OTR/L
--- NOTE | 2020-01-06 17:00 | NUR ---
PT REFUSES REPOSITIONING AT THIS TIME. FALL PRECAUTIONS IN PLACE. BED IS IN THE LOWEST POSITION. CALL LIGHT AND BEDSIDE TABLE ARE WITHIN REACH. SIDE RAILS X 2. PT DENIES FURTHER NEEDS. WILL CONT TO MONITOR.
[2020-01-07] VITALS: BP 114/48
[2020-01-07 04:00] VITALS: BP 109/52
--- NOTE | 2020-01-07 07:21 | NUR ---
0700 BEDSIDE REPORT RECEIVED RESTING QUIETLY WITH EYES CLOSED AWAKENS EASILY
[2020-01-07 08:22] VITALS: BP 116/47
--- NOTE | 2020-01-07 08:35 | MORECARE ---
CASE MANAGEMENT DISCHARGE SUMMARY PATIENT: ZAINA LEVY UNIT: [id number] ADM DATE: 12/27/19 AGE: 64 : 59 SEX: M ROOM/BED: D.2214 AUTHOR: JENNA MAYERS PHYSICIAN: REFERRING PHYSICIAN: RACHAEL BENOIT MD DATE OF SERVICE: 01/07/20 Discharge Plan Patient Name: ZAINA LEVY Facility: [facility]:[place] : 1955 Planned Disposition: Inpatient Rehab Anticipated Discharge Date: Discharge Date: Expected LOS: Initial Reviewer: [id number] Initial Review Date: 12/27/2019 Generated: 01/07/20 9:35 am Comments DCP- Discharge Planning Updated by [id number]: Regina Pham on 01/07/20 7:[address] BENOIT DID THE P2P ON 01/05 AND THE DENIAL WAS UP HELD WILL SPEAK WITH FAMILY ABOUT PLAN B DCP- Discharge Planning Updated by [email or web address]: Regina Pham on 01/06/20 12:[address] received a denial for Inpatient rehab, I have called [facility]isha at [phone] to set up the P2P. DCP- Discharge Planning Updated by [id number]: Regina Pham on 01/02/20 2:[address] Patient Name: ZAINA LEVY Admission Status: ER Accout number: [id number] Admission Date: 12-27-2019 : 1955 Admission Diagnosis:TRANSIENT ALTERATION OF AWARENESS Attending: RACHAEL BENOIT Current LOS: 6 Anticipated DC Date: Planned Disposition: Inpatient Rehab Primary Insurance: [facility] MEDICARE SOLUTIONS Discharge Planning Comments: CM met with patient 's to complete initial dc planning assessment. CM educated patient on the CM role and verbal consent given by patient to complete assessment. Patient lives at home with his where he is total care at this time. stated that he was discharged from [facility] and was so weak and could not walk. She stated that he fell 3 times there. She would like him to go to inpatient rehab here at [facility]. CM discussed availability of home health, rehab services, and medical equipment. He is current with [facility] . Patient has a walker, carola life, walker, wheelchair, shower chair, BSC, and ramp at home. Patient denied known discharge needs at this time. CM will continue to follow and will assist as needed with dc plans/needs. Knowledge Management Consultant: Regina Pham DCPIA - Discharge Planning Initial Assessment Updated by [id number]: Regina Pham on 01/02/20 2:52 pm * Is the patient Alert and Oriented? Yes * How many steps to enter\exit or inside your home? RAMP * PCP CY * Pharm[facility] [place] * Preadmission Environment Home with Family * ADLs Total Dependent * Equipment Bedside Commode Cane Carola Lift Rolling Walker Shower Chair Walker Wheelchair * List name and contact numbers for known caregivers / representatives who currently or will assist patient after discharge: BLAISE ( ) [phone] * Verbal permission to speak to the caregivers and representatives has been obtained from the patient. N/A * Community resources currently utilized Home Health * Please name any agencies selected above. [facility] * Additional services required to return to the preadmission environment? Yes * Can the patient safely return to the preadmission environment? No * Has this patient been hospitalized within the prior 30 days at any hospital? Yes Coverage Notice Reviewer: [id number] - Regina Pham Notice Issued Date-Time: 01/02/2020 14:35 Notice Type: Patient Choice Letter Notice Delivered To: Family Member Relationship to Patient: Spouse Director Fixed Income Name: BLAISE Delivery Method: HAND - Hand Delivered Tamie Days: Prior Verbal Notification: Recipient Understood Notice: Yes Recipient Signature: Yes Med Rec Note Co-signed by Attending: Coverage Notice Comment: [facility]YA FOR INPATIENT REHAB AT [facility] Last DP export: 01/06/20 12:19 Patient Name: ZAINA LEVY Page 58913 at 0835 All edits/amendments must be made on the electronic document DICTATION DATE: 01/07/20834 BISQUE FINISHER: HAKEEM 01/07/20834 RPT#: [id number] DC DATE: STATUS: ADM IN [facility] [address] [place] [address] END OF REPORT
[2020-01-07 12:46] VITALS: BP 122/58
--- NOTE | 2020-01-07 13:50 | NUR ---
1030 PHYSICAL THERAPY PRESENT TO GET PT UP IN RECLINER CHAIR UTILIZING A WALKER
--- NOTE | 2020-01-07 13:52 | NUR ---
1103 BACK TO BED WITH ASSIST X 3 PLACED ON BED GUERRERO SPOUSE REMAINS AT BEDSIDE
--- NOTE | 2020-01-07 13:53 | NUR ---
1300 DR BENOIT ROUNDING ON PATIENT AND ASKED ME ABOUT BACK BRACE THAT WAS DROPPED OFF YESTERDAY FOR PTS COMPRESSION FX X 2 NOTIFIED PT IF THEY WILL PLACE BRACE ON PATIENT PT SAID THEY WILL PLACE ON PT TOMORROW WHEN THEY GET PT OUT OF BED AGAIN
--- NOTE | 2020-01-07 17:45 | NUR ---
OT NOTE: PT COMPLETED BED MOB TASKS WITH MIN A. PT REQUIRED MAX A WITH LB HYGIENE TASKS. [phone] BRITTANY ELIAS COTA
[2020-01-07 17:56] VITALS: BP 120/58
[2020-01-07 20:00] VITALS: BP 112/56
--- NOTE | 2020-01-07 20:00 | NUR ---
SUPINE IN BED, A&O X 4. AT BEDSIDE. PLACED ON BSC, PT TURNS BY SELF. REDNESS/EXCORIATION NOTED TO BUTTOCK. PT REPORTS PAIN OF 9/10 TO BACK, CTM.
[2020-01-08] VITALS: BP 112/49
--- NOTE | 2020-01-08 00:51 | NUR ---
NS INFUSING 50 MLS WHILE TRANSPORTED ROOM ON THE FLOOR.
--- NOTE | 2020-01-08 03:28 | NUR ---
I have reviewed this patient and I concur with the Shift Assessment completed by the Licensed Practical Nurse today this shift.
[2020-01-08 04:00] VITALS: BP 109/65
--- NOTE | 2020-01-08 07:39 | NUR ---
0700 BEDSIDE REPORT RECEIVED AWAKE IN BED VOICES NO COMPLAINTS
--- NOTE | 2020-01-08 08:01 | MORECARE ---
CASE MANAGEMENT DISCHARGE SUMMARY PATIENT: ZAINA LEVY UNIT: [id number] ADM DATE: 12/27/19 AGE: 64 : 59 SEX: M ROOM/BED: D.2214 AUTHOR: JENNA MAYERS PHYSICIAN: REFERRING PHYSICIAN: RACHAEL BENOIT MD DATE OF SERVICE: 01/08/20 Discharge Plan Patient Name: ZAINA LEVY Facility: [facility]:[place] : 1955 Planned Disposition: Inpatient Rehab Anticipated Discharge Date: Discharge Date: Expected LOS: Initial Reviewer: [id number] Initial Review Date: 12/27/2019 Generated: 01/08/20 9:01 am Comments DCP- Discharge Planning Updated by [id number]: Regina Pham on 01/08/20 6:[address] CALLED [facility] IN [place] TO CHECK ON SENT OUT LAB, IT IS STILL PENDING DCP- Discharge Planning Updated by [email or web address]: Regina Pham on 01/07/20 7:[address] BENOIT DID THE P2P ON 01/05 AND THE DENIAL WAS UP HELD WILL SPEAK WITH FAMILY ABOUT PLAN B DCP- Discharge Planning Updated by [id number]: Regina Pham on 01/06/20 12:[address] received a denial for Inpatient rehab, I have called Elisha at [phone] to set up the P2P. DCP- Discharge Planning Updated by [email or web address]: Regina Pham on 01/02/20 2:[address] Patient Name: ZAINA LEVY Admission Status: ER Accout number: [id number] Admission Date: 12-27-2019 : 1955 Admission Diagnosis:TRANSIENT ALTERATION OF AWARENESS Attending: RACHAEL BENOIT Current LOS: 6 Anticipated DC Date: Planned Disposition: Inpatient Rehab Primary Insurance: [facility] MEDICARE SOLUTIONS Discharge Planning Comments: CM met with patient 's to complete initial dc planning assessment. CM educated patient on the CM role and verbal consent given by patient to complete assessment. Patient lives at home with his where he is total care at this time. stated that he was discharged from [facility] and was so weak and could not walk. She stated that he fell 3 times there. She would like him to go to inpatient rehab here at [facility]. CM discussed availability of home health, rehab services, and medical equipment. He is current with [facility]. Patient has a walker, carola life, walker, wheelchair, shower chair, BSC, and ramp at home. Patient denied known discharge needs at this time. CM will continue to follow and will assist as needed with dc plans/needs. Wholesale Manager: Regina Pham DCPIA - Discharge Planning Initial Assessment Updated by [email or web address]: Regina Pham on 01/02/20 2:52 pm * Is the patient Alert and Oriented? Yes * How many steps to enter\exit or inside your home? RAMP * PCP CY * [facility] [place] * Preadmission Environment Home with Family * ADLs Total Dependent * Equipment Bedside Commode Cane Carola Lift Rolling Walker Shower Chair Walker Wheelchair * List name and contact numbers for known caregivers / representatives who currently or will assist patient after discharge: BLAISE ( ) [phone] * Verbal permission to speak to the caregivers and representatives has been obtained from the patient. N/A * Community resources currently utilized Home Health * Please name any agencies selected above. [facility] * Additional services required to return to the preadmission environment? Yes * Can the patient safely return to the preadmission environment? No * Has this patient been hospitalized within the prior 30 days at any hospital? Yes Coverage Notice Reviewer: [id number] - Regina Pham Notice Issued Date-Time: 01/02/2020 14:35 Notice Type: Patient Choice Letter Notice Delivered To: Family Member Relationship to Patient: Spouse Chain Mortiser Operator Name: BLAISE Delivery Method: HAND - Hand Delivered Tamie Days: Prior Verbal Notification: Recipient Understood Notice: Yes Recipient Signature: Yes Med Rec Note Co-signed by Attending: Coverage Notice Comment: KENYA FOR INPATIENT REHAB AT [facility] Last DP export: 01/07/20 7:35 Patient Name: ZAINA LEVY Page 61504 at 0801 All edits/amendments must be made on the electronic document DICTATION DATE: 01/08/20800 SUPERVISOR STRIPPING: HAKEEM 01/08/20800 RPT#: [id number] DC DATE: STATUS: ADM IN [facility] [address] [place] [address] END OF REPORT
[2020-01-08 08:46] VITALS: BP 110/46
[2020-01-08 12:00] VITALS: BP 112/48
--- NOTE | 2020-01-08 12:42 | NUR ---
OT NOTE: REQUIRED MOD ASSIST FOR ROLLING SIDE TO SIDE; APPLIED BACK BRACE BY LOG ROLLING IN BED. SUPINE TO SIT WITH MOD ASSIST; SIT TO STAND WIHT MOD ASSIST WHILE BACK BRACE WAS BEING ADJUSTED. UPSET BECAUSE SHE WAS TOLD THAT PT WOULD HAVE A "CUSTOM" BACK BRACE. WITH CONTINUOUS COMPLAINTS ABOUT NUMEROUS THINGS. PT ABLE TO AMBULATE AROUND ROOM WITH WALKER AND MOD ASSIST. REPORTS THAT SHE IS PROUD OF BECAUSE SHE HAS NOT SEEN HIM WALK.. HOWEVER, SHE WATCHED HIM YESTERDAY. BRYCE LEVI, OTR/L [id number]
--- NOTE | 2020-01-08 16:47 | NUR ---
OT NOTE: PT REQUIRED TOTAL A WITH DONNING LUMBAR BRACE. EDUCATED ON DONNING BRACE. REQUESTED A CUSTOM MADE LUMBAR BRACE. STATED SHE WOULD TALK TO NURSE AND DIRECTOR OF SOCIAL MEDIA MARKETING. PT REQUIRED MAX A X2 FOR SUPINE TO SIT. PT REQUIRED MAX A FOR SIT TO STAND. PT COMPLETED ADL MOB WITH MIN A. [id number] BRITTANY ELIAS COTA
[2020-01-08 16:53] VITALS: BP 106/69
[2020-01-08 20:00] VITALS: BP 119/72
--- NOTE | 2020-01-08 23:30 | NUR ---
I have reviewed this patient and I concur with the Shift Assessment completed by the Licensed Practical Nurse today this shift.
[2020-01-09] VITALS: BP 111/70
--- NOTE | 2020-01-09 | NUR ---
PT SUPINE IN BED, HAS BEEN LETHARGIC SINCE BEGINNING OF SHIFT. REPORTS HE'S BEEN LETHARGIC ALL DAY, NO APETITE AT ALL. HE IS ORIENTED X 4. BP IS 111/70, BUT HEARTRATE READS 165. ASHLEY PAGED. PER ORDER, TELEMETRY APPLIED- 168 SVT, EKG PERFORMED, AWAITING BMP RESULTS. CONTINUE TO MONITOR.
[2020-01-09 00:59] LABS: ANION GAP 8.9 mmol/L (8-16); CALCIUM 9.4 mg/dL (8.5-10.1); CREATININE - SERUM 1.6 mg/dL (0.6-1.3); POTASSIUM - SERUM 3.9 mmol/L (3.5-5.1)
--- NOTE | 2020-01-09 01:45 | NUR ---
NOTIFIED DR RAMIREZ OF TELEMETRY READINGS/EKG AND LAB RESULTS. ORDERS ENTERED PER TELEPHONE ORDER. SEE MAY. TRANSFER TO ROOM 2107 FOR CARDIAC DRIP. MAIL COURIER NOTIFIED, REPORT CALLED TO SUDHA VALENZUELA. CPOC.
[2020-01-09 02:40] LABS: CKMB 0.1 U/L (0.0-3.6); CREATINE KINASE 23 UL (21-232); TROPONIN-I 0.059 ng/mL (0.000-0.060)
--- NOTE | 2020-01-09 03:29 | NUR ---
PATIENT ARRIVED TO MED [address]. PAGED DR. RAMIREZ TO HAVE CARDIZEM ORDER CLARIFIED. BOLUS D/Cd. PATIENT IS ALERT AND ORIENTED, RESTING COMFORTABLY IN BED. HEART RATE 163. CARDIZEM DRIP STARTED. NEEDS MET. CALL LIGHT WITHIN REACH. WILL CPOC.
--- NOTE | 2020-01-09 04:00 | NUR ---
NORMAL SINUS 68
--- NOTE | 2020-01-09 04:43 | NUR ---
NOTIFIED BY DIRECTOR ATHLETIC THAT PATIENT HR 168.
[2020-01-09 07:17] LABS: CKMB 0.4 U/L (0.0-3.6); CREATINE KINASE 22 UL (21-232)
[2020-01-09 07:28] LABS: TROPONIN-I 0.093 ng/mL (0.000-0.060)
--- NOTE | 2020-01-09 09:11 | MORECARE ---
CASE MANAGEMENT DISCHARGE SUMMARY PATIENT: ZAINA LEVY UNIT: [id number] ADM DATE: 12/27/19 AGE: 64 : 59 SEX: M ROOM/BED: D.2108 AUTHOR: JENNA MAYERS PHYSICIAN: REFERRING PHYSICIAN: RACHAEL BENOIT MD DATE OF SERVICE: 01/09/20 Discharge Plan Patient Name: ZAINA LEVY Facility: [facility]:[place] : 1955 Planned Disposition: Inpatient Rehab Anticipated Discharge Date: Discharge Date: Expected LOS: Initial Reviewer: [email or web address] Initial Review Date: 12/27/2019 Generated: 01/09/20 10:10 am Comments DCP- Discharge Planning Updated by [id number]: Regina Pham on 01/09/20 8:[address] late entry 01/08/20 @ 12:00 I spoke with at length about her concern for her . She was very upset. I explained to her what all I had done to try to get him into inpatient rehab along with setting up a P2P for Dr Benoit to try to overturn the denial. She did not understand the process. She then called insurance company and placed a grievance on the insurance MD for denying him. Per the , he has been now approved for inpatient rehab. I explained to her that we will need an Auth letter/number before we could get him to rehab. I also called Linda to tell her the above. She is rightfully worried about him and I think with good communication with her she felt better. DCP- Discharge Planning Updated by [email or web address]: Regina Pham on 01/08/20 6:[address] CALLED [facility] IN [place] TO CHECK ON SENT OUT LAB, IT IS STILL PENDING DCP- Discharge Planning Updated by [email or web address]: Regina hPam on 01/07/20 7:[address] BENOIT DID THE P2P ON 01/05 AND THE DENIAL WAS UP HELD WILL SPEAK WITH FAMILY ABOUT PLAN B DCP- Discharge Planning Updated by [email or web address]: Regina Pham on 01/06/20 12:[address] received a denial for Inpatient rehab, I have called Elisha at [phone] to set up the P2P. DCP- Discharge Planning Updated by [id number]: Regina Pham on 01/02/20 2:[address] Patient Name: ZAINA LEVY Admission Status: ER Accout number: [id number] Admission Date: 12-27-2019 : 1955 Admission Diagnosis:TRANSIENT ALTERATION OF AWARENESS Attending: RACHAEL BENOIT Current LOS: 6 Anticipated DC Date: Planned Disposition: Inpatient Rehab Primary Insurance: [facility] MEDICARE SOLUTIONS Discharge Planning Comments: CM met with patient 's to complete initial dc planning assessment. CM educated patient on the CM role and verbal consent given by patient to complete assessment. Patient lives at home with his where he is total care at this time. stated that he was discharged from [facility] and was so weak and could not walk. She stated that he fell 3 times there. She would like him to go to inpatient rehab here at [facility]. CM discussed availability of home health, rehab services, and medical equipment. He is current with [facility]. Patient has a walker, carola life, walker, wheelchair, shower chair, BSC, and ramp at home. Patient denied known discharge needs at this time. CM will continue to follow and will assist as needed with dc plans/needs. Highway Engineer: Regina Pham DCPIA - Discharge Planning Initial Assessment Updated by [id number]: Regina Pham on 01/02/20 2:52 pm * Is the patient Alert and Oriented? Yes * How many steps to enter\exit or inside your home? RAMP * PCP CY * [facility] [place] * Preadmission Environment Home with Family * ADLs Total Dependent * Equipment Bedside Commode Cane Carola Lift Rolling Walker Shower Chair Walker Wheelchair * List name and contact numbers for known caregivers / representatives who currently or will assist patient after discharge: BLAISE ( ) [phone] * Verbal permission to speak to the caregivers and representatives has been obtained from the patient. N/A * Community resources currently utilized Home Health * Please name any agencies selected above. [facility] * Additional services required to return to the preadmission environment? Yes * Can the patient safely return to the preadmission environment? No * Has this patient been hospitalized within the prior 30 days at any hospital? Yes Coverage Notice Reviewer: [id number] - Regina Pham Notice Issued Date-Time: 01/02/2020 14:35 Notice Type: Patient Choice Letter Notice Delivered To: Family Member Relationship to Patient: Spouse Stripper Black And White Name: BLAISE Delivery Method: HAND - Hand Delivered Tamie Days: Prior Verbal Notification: Recipient Understood Notice: Yes Recipient Signature: Yes Med Rec Note Co-signed by Attending: Coverage Notice Comment: KENYA FOR INPATIENT REHAB AT [facility] Last DP export: 01/08/20 7:01 Patient Name: ZAINA LEVY Page [id number] at 0911 All edits/amendments must be made on the electronic document DICTATION DATE: 01/09/20910 ANESTHESIOLOGIST ASSISTANT: HAKEEM 01/09/20910 RPT#: [id number] DC DATE: STATUS: ADM IN [facility] [address] [place] [address] END OF REPORT
[2020-01-09 09:17] VITALS: BP 94/42
--- NOTE | 2020-01-09 10:09 | NUR ---
Nutrition follow-up: Visited with pts re: food preferences Pt is not happy with renal diet and is not eating. Chart reviewed. K is WNL RDN changed diet odrer to low sodium due to renal diet is not appropriate at this time. RDN honored all of pts food preferences for dinner last night and breakfast this morning. Pt is still refusing to eat. 48 hour calorie count in progress. RDN following.
[2020-01-09 13:14] LABS: CKMB 0.4 U/L (0.0-3.6); CREATINE KINASE 22 UL (21-232)
[2020-01-09 13:18] LABS: TROPONIN-I 0.101 ng/mL (0.000-0.060)
--- NOTE | 2020-01-09 14:51 | NUR ---
0700-LYING IN BED W/EYES CLOSED, NO DISTRESS NOTED. AT BEDSIDE.
--- NOTE | 2020-01-09 14:52 | NUR ---
0900-AM MEDS ADMINISTERED/ORDER, NO DISTRESS NOTED, REMAINS AT BEDSIDE. 1100-NO CHANGES TO REPORT. 1300-EKG DONE--NSR NOTED, DOCTOR IN ROOM FOR VISIT. NO COMPLAINTS, PT IN ROOM ALONE AT THIS TIME. 1453-LYING IN BED W/EYES CLOSED, NO DISTRESS NOTED.
[2020-01-09 16:00] VITALS: BP 99/43
--- NOTE | 2020-01-09 16:11 | NUR ---
Rehab Note- Received call from Uma with [facility] Expidited Appeals for recent clinicals to be faxed. Faxed this AM per request to [phone], Uma's contact # is [phone]. Will continue to await determination for possible acute rehab stay. Disscussed this AM on IDT call. Will continue to follow at this time. Thank you for this referral! Linda Ryan RN Clinical Liaison, [facility] Rehab
[2020-01-09 18:08] LABS: AEROBE ID Final report (())
--- NOTE | 2020-01-09 19:31 | NUR ---
HR 68--CARDIZIEM DRIP STOPPED, MIDLINE FLUSHED W/NS, PT LYING IN BED W/EYES CLOSED, AROUSES EASILY TO PHYSICAL STIMULI. NO DISTRESS NOTED.
[2020-01-09 20:00] VITALS: BP 98/45
--- NOTE | 2020-01-09 23:54 | NUR ---
SUPINE IN BED, EYES CLOSED, RESPIRATIONS EVEN, NONLABORED. NO S/SX OF SISTRESS, CTM.
--- NOTE | 2020-01-10 03:34 | NUR ---
MANUAL BP 92/50
[2020-01-10 04:00] VITALS: BP 76/37; BP 92/50
--- NOTE | 2020-01-10 04:00 | NUR ---
SUPINE IN BED, SPONTANEOUS EYE OPENING UPON VERBAL STIMULATION. MANUAL BP 92/50. COMPUTER INFORMATION SCIENCE PROFESSOR READS 44 SINUS GRETTA. CONTINUE TO MONITOR.
[2020-01-10 06:20] VITALS: BP 82/52
[2020-01-10 09:00] VITALS: BP 65/40
--- NOTE | 2020-01-10 12:46 | NUR ---
OT NOTE: PT WAS VERY DIFFICULT TO AROUSE THIS AM. AFTER FINALLY GETTING PT AWAKE, HE REPORTED NEEDING TO USE BED GUERRERO; MAX ASSIST WITH ROLLING TO PUT HIM ON BED GUERRERO. ALLOWED APPROX 10 MIN AND PT REPORTED THAT HE WAS NOT ABLE TO HAVE A BM...APPLIED BACK BRACE WITH ASSIST WHILE PT WAS IN BED.. READJUSTED WHEN PT WAS SITTING UP ON EOB. SIT TO STAND WITH MOD ASSIST AND USE OF WALKER; ABLE TO AMB IN ROOM APPROX 15 FT; TRANSFERRED TO CHAIR WITH MIN ASSIST. BRYCE LEVI, OTR/L [phone]
--- NOTE | 2020-01-10 13:58 | NUR ---
Nutrition Follow-up/Calorie Count: PO intake improving. Diet: Low Na, Ensure TID Wt: 253.2# (01/09) Labs reviewed Meds reviewed CALORIE COUNT: CALORIESPROTEIN 01/08 - Breakfast 360 18 --- 01/08 - Dinner 535 32 01/09 - Breakfast 555 25 -Encourage PO intake and honor food preferences within diet restrictions. -RD following.
--- NOTE | 2020-01-10 14:20 | NUR ---
BLAISE LEVY CALLED WITH COMPLAINTS OF OUR P.T. PEOPLE. SHE STATES THAT HIS BRACE WAS PUT ON FDC AND THAT HE WAS LEFT SITTING ON A DIRTY SHEET AND THAT THERAPY HAD TO BE CALLED OVERHEAD SEVERAL TIMES TO PUT HIM BACK TO BED. SHE ALSO ASKED IF WE HAD HEARD FROM THE INSURANCE COMPANY AND I ASKED JONATAN DOMINGUEZ AND SHE STATES NO. I CALLED MS LEVY BACK AT 1435 AND MADE HER AWARE OF THIS INFO. I TALKED TO TAMEKA TEST INSPECTION ENGINEER WITH THERAPY AND RELAYED THESE COMPLAINTS TO HIM, GAVE HIM THE PHONE NUMBER [phone] AND HE STATES HE WILL CALL HER.
--- NOTE | 2020-01-10 16:35 | MORECARE ---
CASE MANAGEMENT DISCHARGE SUMMARY PATIENT: ZAINA LEVY UNIT: [id number] ADM DATE: 12/27/19 AGE: 64 : 59 SEX: M ROOM/BED: D.2102 AUTHOR: TALIBDOC PHYSICIAN: REFERRING PHYSICIAN: RACHAEL BENOIT MD DATE OF SERVICE: 01/10/20 Discharge Plan Patient Name: ZAINA LEVY Facility: [facility]:[place] : 1955 Planned Disposition: Inpatient Rehab Anticipated Discharge Date: Discharge Date: Expected LOS: Initial Reviewer: [email or web address] Initial Review Date: 12/27/2019 Generated: 01/10/20 5:34 pm Comments DCP- Discharge Planning Updated by [email or web address]: Carmen Kumar on 01/10/20 3:[address] Levy is asking why an UGI has not been done, why the patient is not on antibiotics and why the ascites culture was sent to [facility]. I explained to her that the MD's are awaiting the culture in order to determine the appropriate antibiotic for the bacteria. CM also informed of antibiotic resistance and importance of using the correct antibiotic. DCP- Discharge Planning Updated by [email or web address]: Regina Pham on 01/09/20 8:[address] late entry 01/08/20 @ 12:00 I spoke with at length about her concern for her . She was very upset. I explained to her what all I had done to try to get him into inpatient rehab along with setting up a P2P for Dr Benoit to try to overturn the denial. She did not understand the process. She then called insurance company and placed a grievance on the insurance MD for denying him. Per the , he has been now approved for inpatient rehab. I explained to her that we will need an Auth letter/number before we could get him to rehab. I also called Linda to tell her the above. She is rightfully worried about him and I think with good communication with her she felt better. DCP- Discharge Planning Updated by [email or web address]: Regina Pham on 01/08/20 6:[address] CALLED [facility] IN [place] TO CHECK ON SENT OUT LAB, IT IS STILL PENDING DCP- Discharge Planning Updated by [email or web address]: Regina Pham on 01/07/20 7:[address] BENOIT DID THE P2P ON 01/05 AND THE DENIAL WAS UP HELD WILL SPEAK WITH FAMILY ABOUT PLAN B DCP- Discharge Planning Updated by [email or web address]: Regina Pham on 01/06/20 12:[address] received a denial for Inpatient rehab, I have called Elisha at [phone] to set up the P2P. DCP- Discharge Planning Updated by [id number]: Regina Pham on 01/02/20 2:[address] Patient Name: ZAINA LEVY Admission Status: ER Accout number: [id number] Admission Date: 12-27-2019 : 1955 Admission Diagnosis:TRANSIENT ALTERATION OF AWARENESS Attending: RACHAEL BENOIT Current LOS: 6 Anticipated DC Date: Planned Disposition: Inpatient Rehab Primary Insurance: [facility] MEDICARE SOLUTIONS Discharge Planning Comments: CM met with patient 's to complete initial dc planning assessment. CM educated patient on the CM role and verbal consent given by patient to complete assessment. Patient lives at home with his where he is total care at this time. stated that he was discharged from [facility] and was so weak and could not walk. She stated that he fell 3 times there. She would like him to go to inpatient rehab here at [facility]. CM discussed availability of home health, rehab services, and medical equipment. He is current with [facility] . Patient has a walker, carola life, walker, wheelchair, shower chair, BSC, and ramp at home. Patient denied known discharge needs at this time. CM will continue to follow and will assist as needed with dc plans/needs. Shift Manager: Regina Pham DCPIA - Discharge Planning Initial Assessment Updated by [email or web address]: Regina Pham on 01/02/20 2:52 pm * Is the patient Alert and Oriented? Yes * How many steps to enter\exit or inside your home? RAMP * PCP CY * [facility] [place] * Preadmission Environment Home with Family * ADLs Total Dependent * Equipment Bedside Commode Cane Carola Lift Rolling Walker Shower Chair Walker Wheelchair * List name and contact numbers for known caregivers / representatives who currently or will assist patient after discharge: BLAISE ( ) [phone] * Verbal permission to speak to the caregivers and representatives has been obtained from the patient. N/A * Community resources currently utilized Home Health * Please name any agencies selected above. [facility] * Additional services required to return to the preadmission environment? Yes * Can the patient safely return to the preadmission environment? No * Has this patient been hospitalized within the prior 30 days at any hospital? Yes Coverage Notice Reviewer: [id number] Arlen Pham Notice Issued Date-Time: 01/02/2020 14:35 Notice Type: Patient Choice Letter Notice Delivered To: Family Member Relationship to Patient: Spouse Consultative Sales Associate Name: BLAISE Delivery Method: HAND - Hand Delivered Tamie Days: Prior Verbal Notification: Recipient Understood Notice: Yes Recipient Signature: Yes Med Rec Note Co-signed by Attending: Coverage Notice Comment: K[facility]YA FOR INPATIENT REHAB AT [facility] Last DP export: 01/09/20 8:11 Patient Name: ZAINA LEVY Page 84445 at 1635 All edits/amendments must be made on the electronic document DICTATION DATE: 01/10/20 1634 DATAPOWER CONSULTANT: HAKEEM 01/10/20 1634 RPT#: [id number] DC DATE: STATUS: ADM IN [facility] [address] [place] [address] END OF REPORT
--- NOTE | 2020-01-10 16:44 | NUR ---
Rehab Note- Received VM from Stanley with [facility] with a 7 day approval of acute rehab stay with an overturned appeal. Stated that f/u review will be Shan[place] phone #[phone], fax #[phone]. Auth #[id number]. Spoke with JONATAN Morales to inform her of auth- the patient currently is not medically stable with hypotension BP 65/40 and bradycardia 47 HR, will follow at this time and will accept when medically stable. Thank you for this referral! Linda Ryan RN Clinical Liaison, [facility] Rehab
--- NOTE | 2020-01-10 16:58 | MORECARE ---
CASE MANAGEMENT DISCHARGE SUMMARY PATIENT: ZAINA LEVY UNIT: [id number] ADM DATE: 12/27/19 AGE: 64 : 59 SEX: M ROOM/BED: D.3536 AUTHOR: TALIB,DOC PHYSICIAN: REFERRING PHYSICIAN: RACHAEL BENOIT MD DATE OF SERVICE: 01/10/20 Discharge Plan Patient Name: ZAINA LEVY Facility: [facility]:[place] : 1955 Planned Disposition: Inpatient Rehab Anticipated Discharge Date: Discharge Date: Expected LOS: Initial Reviewer: [id number] Initial Review Date: 12/27/2019 Generated: 01/10/20 5:57 pm Comments DCP- Discharge Planning Updated by [id number]: Carmen Kumar on 01/10/20 3:[address] CM faxed additional clinical to Uma, for the expatiated insurance appeal, @[phone], phone: [phone]. Also, called Uma to determine the status of appeal. Uma stated that the appeal has been overturned by the MD. Authorization for Inpatient rehab starts 01/10/20. Authorization #[id number]. JONATAN spoke with Linda (rehab) and she is aware of same. Linda is aware of patient's low BP and HR. CM made and patient aware of the decision and need to have a stabilized BP and HR prior to his rehab admit. DCP- Discharge Planning Updated by [email or web address]: Carmen Kumar on 01/10/20 3:[address] Levy is asking why an UGI has not been done, why the patient is not on antibiotics and why the ascites culture was sent to [facility]. I explained to her that the MD's are awaiting the culture in order to determine the appropriate antibiotic for the bacteria. CM also informed of antibiotic resistance and importance of using the correct antibiotic. DCP- Discharge Planning Updated by [id number]: Regina Pham on 01/09/20 8:[address] late entry 01/08/20 @ 12:00 I spoke with at length about her concern for her . She was very upset. I explained to her what all I had done to try to get him into inpatient rehab along with setting up a P2P for Dr Benoit to try to overturn the denial. She did not understand the process. She then called insurance company and placed a grievance on the insurance MD for denying him. Per the , he has been now approved for inpatient rehab. I explained to her that we will need an Auth letter/number before we could get him to rehab. I also called Linda to tell her the above. She is rightfully worried about him and I think with good communication with her she felt better. DCP- Discharge Planning Updated by [email or web address]: Regina Pham on 01/08/20 6:[address] CALLED [facility] [place] TO CHECK ON SENT OUT LAB, IT IS STILL PENDING DCP- Discharge Planning Updated by [email or web address]: Regina Pham on 01/07/20 7:[address] BENOIT DID THE P2P ON 01/05 AND THE DENIAL WAS UP HELD WILL SPEAK WITH FAMILY ABOUT PLAN B DCP- Discharge Planning Updated by [email or web address]: Regina Pham on 01/06/20 12:[address] received a denial for Inpatient rehab, I have called Elisha at [phone] to set up the P2P. DCP- Discharge Planning Updated by [id number]: Regina Pham on 01/02/20 2:[address] Patient Name: ZAINA LEVY Admission Status: ER Accout number: [id number] Admission Date: 12-27-2019 : 1955 Admission Diagnosis:TRANSIENT ALTERATION OF AWARENESS Attending: RACHAEL BENOIT Current LOS: 6 Anticipated DC Date: Planned Disposition: Inpatient Rehab Primary Insurance: [facility] MEDICARE SOLUTIONS Discharge Planning Comments: CM met with patient 's to complete initial dc planning assessment. CM educated patient on the CM role and verbal consent given by patient to complete assessment. Patient lives at home with his where he is total care at this time. stated that he was discharged from [facility] and was so weak and could not walk. She stated that he fell 3 times there. She would like him to go to inpatient rehab here at [facility]. CM discussed availability of home health, rehab services, and medical equipment. He is current with [facility]. Patient has a walker, carola life, walker, wheelchair, shower chair, BSC, and ramp at home. Patient denied known discharge needs at this time. CM will continue to follow and will assist as needed with dc plans/needs. Supervisor Delivery Department: Regina Pham DCPIA - Discharge Planning Initial Assessment Updated by [email or web address]: Regina Pham on 01/02/20 2:52 pm * Is the patient Alert and Oriented? Yes * How many steps to enter\exit or inside your home? RAMP * PCP CY * [facility] [place] * Preadmission Environment Home with Family * ADLs Total Dependent * Equipment Bedside Commode Cane Carola Lift Rolling Walker Shower Chair Walker Wheelchair * List name and contact numbers for known caregivers / representatives who currently or will assist patient after discharge: BLAISE ( ) [phone] * Verbal permission to speak to the caregivers and representatives has been obtained from the patient. N/A * Community resources currently utilized Home Health * Please name any agencies selected above. [facility] * Additional services required to return to the preadmission environment? Yes * Can the patient safely return to the preadmission environment? No * Has this patient been hospitalized within the prior 30 days at any hospital? Yes Coverage Notice Reviewer: [id number] - Regina Pham Notice Issued Date-Time: 01/02/2020 14:35 Notice Type: Patient Choice Letter Notice Delivered To: Family Member Relationship to Patient: Spouse Electronic Prepress Technician Name: BLAISE Delivery Method: HAND - Hand Delivered Tamie Days: Prior Verbal Notification: Recipient Understood Notice: Yes Recipient Signature: Yes Med Rec Note Co-signed by Attending: Coverage Notice Comment: KENYA FOR INPATIENT REHAB AT [facility] Last DP export: 01/10/20 3:35 Patient Name: ZAINA LEVY Page 47597 at 1658 All edits/amendments must be made on the electronic document DICTATION DATE: 01/10/201656 JAR FILLER: HAKEEM 01/10/201656 RPT#: [id number] DC DATE: STATUS: ADM IN [facility] [address] [place] [address] END OF REPORT
--- NOTE | 2020-01-10 17:05 | MORECARE ---
CASE MANAGEMENT DISCHARGE SUMMARY PATIENT: ZAINA LEVY UNIT: [id number] ADM DATE: 12/27/19 AGE: 64 : 59 SEX: M ROOM/BED: D.8404 AUTHOR: TALIB,DOC PHYSICIAN: REFERRING PHYSICIAN: RACHAEL BENOIT MD DATE OF SERVICE: 01/10/20 Discharge Plan Patient Name: ZAINA LEVY Facility: [facility]:[place] : 1955 Planned Disposition: Inpatient Rehab Anticipated Discharge Date: Discharge Date: Expected LOS: Initial Reviewer: [id number] Initial Review Date: 12/27/2019 Generated: 01/10/20 6:04 pm Comments DCP- Discharge Planning Updated by [id number]: Carmen Kumar on 01/10/20 3:[address] CM faxed additional clinical to Uma, for the expatiated insurance appeal, @[phone], phone: [phone]. Also, called Uma to determine the status of appeal. Uma stated that the appeal has been overturned by the MD. Authorization for Inpatient rehab starts 01/10/20. Authorization #[id number]. JONATAN spoke with Linda (rehab) and she is aware of same. Linda is aware of patient's low BP and HR. CM made and patient aware of the decision and need to have a stabilized BP and HR prior to his rehab admit. DCP- Discharge Planning Updated by [id number]: Carmen Kumar on 01/10/20 3:[address] Levy is asking why an UGI has not been done, why the patient is not on antibiotics and why the ascites culture was sent to [facility]. I explained to her that the MD's are awaiting the culture in order to determine the appropriate antibiotic for the bacteria. CM also informed of antibiotic resistance and importance of using the correct antibiotic. DCP- Discharge Planning Updated by [id number]: Regina Pham on 01/09/20 8:[address] late entry 01/08/20 @ 12:00 I spoke with at length about her concern for her . She was very upset. I explained to her what all I had done to try to get him into inpatient rehab along with setting up a P2P for Dr Benoit to try to overturn the denial. She did not understand the process. She then called insurance company and placed a grievance on the insurance MD for denying him. Per the , he has been now approved for inpatient rehab. I explained to her that we will need an Auth letter/number before we could get him to rehab. I also called Linda to tell her the above. She is rightfully worried about him and I think with good communication with her she felt better. DCP- Discharge Planning Updated by [id number]: Regina Pham on 01/08/20 6:[address] CALLED [facility] [place] TO CHECK ON SENT OUT LAB, IT IS STILL PENDING DCP- Discharge Planning Updated by [id number]: Regina Pham on 01/07/20 7:[address] BENOIT DID THE P2P ON 01/05 AND THE DENIAL WAS UP HELD WILL SPEAK WITH FAMILY ABOUT PLAN B DCP- Discharge Planning Updated by [email or web address]: Regina Pham on 01/06/20 12:[address] received a denial for Inpatient rehab, I have called Elisha at [phone] to set up the P2P. DCP- Discharge Planning Updated by [id number]: Regina Pham on 01/02/20 2:[address] Patient Name: ZAINA LEVY Admission Status: ER Accout number: [id number] Admission Date: 12-27-2019 : 1955 Admission Diagnosis:TRANSIENT ALTERATION OF AWARENESS Attending: RACHAEL BNEOIT Current LOS: 6 Anticipated DC Date: Planned Disposition: Inpatient Rehab Primary Insurance: [facility] MEDICARE SOLUTIONS Discharge Planning Comments: CM met with patient 's to complete initial dc planning assessment. CM educated patient on the CM role and verbal consent given by patient to complete assessment. Patient lives at home with his where he is total care at this time. stated that he was discharged from [facility] and was so weak and could not walk. She stated that he fell 3 times there. She would like him to go to inpatient rehab here at [facility]. CM discussed availability of home health, rehab services, and medical equipment. He is current with [facility]. Patient has a walker, carola life, walker, wheelchair, shower chair, BSC, and ramp at home. Patient denied known discharge needs at this time. CM will continue to follow and will assist as needed with dc plans/needs. Criminal Justice Lawyer: Regina Pham DCPIA - Discharge Planning Initial Assessment Updated by [id number]: Regina Pham on 01/02/20 2:52 pm * Is the patient Alert and Oriented? Yes * How many steps to enter\exit or inside your home? RAMP * PCP CY * [facility] IN [place] * Preadmission Environment Home with Family * ADLs Total Dependent * Equipment Bedside Commode Cane Carola Lift Rolling Walker Shower Chair Walker Wheelchair * List name and contact numbers for known caregivers / representatives who currently or will assist patient after discharge: BLAISE ( ) [phone] * Verbal permission to speak to the caregivers and representatives has been obtained from the patient. N/A * Community resources currently utilized Home Health * Please name any agencies selected above. [facility] * Additional services required to return to the preadmission environment? Yes * Can the patient safely return to the preadmission environment? No * Has this patient been hospitalized within the prior 30 days at any hospital? Yes Coverage Notice Reviewer: [id number] - Regina Pham Notice Issued Date-Time: 01/02/2020 14:35 Notice Type: Patient Choice Letter Notice Delivered To: Family Member Relationship to Patient: Spouse Alarm Adjuster Name: BLAISE Delivery Method: HAND - Hand Delivered Tamie Days: Prior Verbal Notification: Recipient Understood Notice: Yes Recipient Signature: Yes Med Rec Note Co-signed by Attending: Coverage Notice Comment: KENYA FOR INPATIENT REHAB AT [facility] Last DP export: 01/10/20 3:58 Patient Name: ZAINA LEVY Page 66715 at 1705 All edits/amendments must be made on the electronic document DICTATION DATE: 01/10/201703 BUSINESS STRATEGY MANAGER: HAKEEM 01/10/201703 RPT#: [id number] DC DATE: STATUS: ADM IN [facility] [address] [place] [address] END OF REPORT
--- NOTE | 2020-01-10 18:36 | NUR ---
OT NOTE: (AM) PT REQUIRED MAX A FOR SIDE ROLLING TO PRATEEK BACK BRACE. PT REQUESTED TO BE PLACED ON BED GUERRERO. PT PUSHE CALL LIGHT WHEN DONE. PT STATED NO BM. PT COMPLETED SUPINE TO SIT WITH MOD/MAX A. PT REQUIRED ADJUSTMENT OF BACK BRACE AT EOB WITH TOTAL A. PT COMPLETED BED TO CHAIR TSF WITH MOD A. PT BED LINENS STRIPPED WHILE SEATED IN CHAIR. PT LEFT UPRIGHT WITH BACK BRACE ON WITH CALL LIGHT. (PM) THERAPY STAFF WERE WALKING IN HALLWAY TO 2106, PT ASKED"ARE YOU HEADED TO 2106? PT TECH REPLIED YES. PT STATED" GOOD. BECAUSE YOU HAVE BEEN CALLED TWICE OVER HEAD. AND I AM REPORTING TO ADMINISTRATION." THERAPY PROCEEDED TO ROOM. ENTERED. PT BRACE ADJUSTED. PT REQUIRED MOD A FOR SIT TO STAND. PT COMPLETED CHAIR TO BED TSF WITH MIN A. PT REQUIRED MAX A FOR LE MANAGEMENT FOR SIT TO SUPINE. PT REQUESTED BED PAIN. PT REQUIRED MAX A FOR BED GUERRERO PLACEMENT. PT REQUESTED BED GUERRERO BE PLACE WIDE END TOWARD BUTTOCKS AND SMALL END TOWARD BACK. PT LEFT WITH CALL LIGHT TO CALL FRETTED INSTRUMENTS INSPECTOR WHEN DONE. PT COVERED AND LEFT WITH . [phone] THANK YOU,WANDA BRIGGS
--- NOTE | 2020-01-10 19:43 | NUR ---
RECIEVED UP IN BED WITH EYES OPEN AND TV ON. ALERT AND ORIENTED X4. REMAINS BEDFAST. F/C INTACT WITH SCANT AMT OF STRAW COLOR AND CONCENTRATED URINE IN BEDSIDE DRAINAGE BAG. DIEGO ARMS DISCOLORES. BUTTOCKS CHON AND TX IN PLACE. O2@ 2 LITERS PER N/C. IV TO LT WRIST SL AND MIDLINE TO RT UPPER ARM. DENIES ANY NEEDS AT THIS TIME.
[2020-01-10 21:00] VITALS: BP 88/50
[2020-01-11 05:00] VITALS: BP 106/47
--- NOTE | 2020-01-11 10:30 | NUR ---
0940-AM MEDS ADMINISTERED/ORDER, ALL B/P MEDS HELD AT THIS TIME FOR LOW B/P. PT IS ASYMPTOMATIC--SPEAKS TO NURSE DENIES ANY C/O.
[2020-01-11 10:53] VITALS: BP 94/41
--- NOTE | 2020-01-11 14:25 | NUR ---
1100-ZOFRAN ADMINISTERED/ORDER FOR C/O NAUSEA, DENIES ANY FURTHER NEEDS. AT BEDSIDE. 1300-PT CONTINUES TO C/O NAUSEA, NO VOMITING, AT BEDSIDE. DENIES ANY FURTHER NEEDS.
[2020-01-11 16:35] VITALS: BP 105/59
--- NOTE | 2020-01-11 16:46 | NUR ---
MIDLINE DRESSING CHANGED TO RIGHT UPPER ARM--PT TOLERATED ALL WELL. NO DISTRESS NOTED.
--- NOTE | 2020-01-11 19:59 | NUR ---
RECIEVED UP IN BED WITH HOB ELEVATED. ALERT AND ORINETED. REMAINS BEDFAST. O2@ 2 LITERS PER N/S. IV TO LT WRIST AND MIDLINE TO RT UPPER ARM. TELEMETRY IN PLACE. DENIES ANY NEEDS AT THIS TIME.
[2020-01-11 20:30] VITALS: BP 117/53
[2020-01-12 00:30] VITALS: BP 127/69
[2020-01-12 04:30] VITALS: BP 113/48
[2020-01-12 07:45] LABS: ANION GAP 15.4 mmol/L (8-16); CALCIUM 10.1 mg/dL (8.5-10.1); CARBON DIOXIDE 23.5 mmol/L (21.0-32.0); CREATININE - SERUM 2.2 mg/dL (0.6-1.3); POTASSIUM - SERUM 5.9 mmol/L (3.5-5.1)
[2020-01-12 08:22] LABS: BASOPHILS 0.2 % (0-2); EOSINOPHILS 0.5 % (0-7); HEMATOCRIT 27.4 % (42.0-54.0); HEMOGLOBIN 8.8 g/dL (13.5-17.5); IMMATURE GRANULOCYTES 1.8 % (0-5); LYMPHOCYTES 18.9 % (15-50); MCH 32.1 pg (26.0-34.0); MCHC 32.1 g/dL (31.0-37.0); MEAN PLATELET VOLUME 11.9 fL (7.4-10.4); MONOCYTES 10.3 % (2-11); NEUTROPHILS 68.3 % (40-80); RBC 2.74 10x6/uL (4.20-6.10); RDW 16.9 % (11.5-14.5); WBC 5.6 10x3/uL (4.8-10.8)
[2020-01-12 08:25] LABS: PLATELET COUNT 38 10x3/uL (130-400)
[2020-01-12 09:24] VITALS: BP 108/47
[2020-01-12 12:46] VITALS: BP 123/55
[2020-01-12 17:30] VITALS: BP 107/38
--- NOTE | 2020-01-12 19:59 | NUR ---
RECIEVED UP IN BED WITH HOB ELEVATED AND EYES CLOSED. EASILY AROUSED WITH VERBAL STIMULI. ORIENTED X4. REMAINS BEDFAST. DENIES ANY NEEDS AT THIS TIME.
[2020-01-12 20:00] VITALS: BP 134/54
[2020-01-13] VITALS: BP 113/52
[2020-01-13 04:00] VITALS: BP 114/58
--- NOTE | 2020-01-13 05:50 | NUR ---
PT GOT UP AND SAT ON SIDE OF BED. ASKED HOW HE DID IT AND RELIED " IT WAS'NT EASY". REFUSES TO LAY DOWN STATING "I'M TIRED OF LAYING DOWN. I'M GOING HOME TODAY". EXPLAINED HIS FEE AND LEGS ARE SWOLLEN AND IT'S BEST TO KEEP THEM UP SO SWELLING CAN GO DOWN. REFUSED.
[2020-01-13 07:11] LABS: ANION GAP 13.2 mmol/L (8-16); CALCIUM 9.7 mg/dL (8.5-10.1); CARBON DIOXIDE 26.9 mmol/L (21.0-32.0); CREATININE - SERUM 2.1 mg/dL (0.6-1.3); POTASSIUM - SERUM 5.1 mmol/L (3.5-5.1)
[2020-01-13] MEDS ORDERED: AMPICILLIN TRI500 MG PO (08:49)
[2020-01-13] MEDS ORDERED: CARDIZEM30 MG PO (08:49)
[2020-01-13] MEDS ORDERED: ALDACTONE25 MG PO (08:50)
[2020-01-13] MEDS ORDERED: BUMEX2 MG PO (08:52)
--- NOTE | 2020-01-13 09:48 | NUR ---
RECEIVED PATIENT SITTING UP IN BED, JUST FINISHED EATING BREAKFAST. PATIENT DENIES PAIN OR NEEDS AT THIS TIME. PLAN OF CARE REVIEWED AND ASSESSMENT HAS BEEN CDMPLETED. CALL LIGHT IN REACH. NAD NOTED.
[2020-01-13 10:23] VITALS: BP 117/59
--- NOTE | 2020-01-13 16:33 | NUR ---
patient moved to inpatient rehab. at bedside. belongings in hand.
--- NOTE | 2020-01-14 15:52 | EC ---
PATIENT:ZAINA LEVY DATE OF SERVICE: 12/27/19 SEX: M MEDICAL RECORD: [id number] DATE OF : [birth year] LOCATION:D.M2 D.210 AGE OF PATIENT: 64 ADMISSION DATE: 12/27/19 REFERRING PHYSICIAN: INTERPRETING PHYSICIAN: IVETT ASHER MD ECHOCARDIOGRAM REPORT ECHO CHARGES 4 ECHO COMPLETE Date: 01/10/20 CLINICAL DIAGNOSIS: FVO, ELEVATED TROP ECHOCARDIOGRAPHIC MEASUREMENTS (adult normal given) AC root (d.<3.7cm) 3.3 cm LV Septum d (<1.2 cm> 1.1 cm Valve Excursion 1.5 cm LV Septum (systole) 1.6 cm Left Atria (s.<4.0cm> 3.6 cm LVPW d(<1.2cm) 1.6 cm RV (d.<2.3cm) 4.2 cm LVPW (sytole) 1.7 cm LV diastole(<5.6CM) 5.9 cm MV E-F(>70mm/sec) cm LV systole 4.6 cm LVOT Diameter 1.7 cm MV exc.(>10mm) cm Est.ejection fraction (50-75%) % DOPPLER: LVIT cm/sec A 87 cm/sec E 72 cm/sec LA cm/sec RVSP 25 mmHg LVOT 122 cm/sec AOP1/2T m/s Asc. Ao 214 cm/sec RVOT 62 cm/sec RA cm/sec PA 74 cm/sec AV Gradient Peak 18.3 mmHg AV Mean 10.1 mmHg AV Area 1.3 cm MV Gradient Peak 2.9 mmHg MV Mean 1.0 mmHg MV Area cm COMMENTS: Life Guard: Summer LAUGHLIN Automotive Machinist: 3 Dr. Shearer TAPE# PACS Pericardial Effusion N DATE OF SERVICE: Adequate 2D, color flow imaging, spectral Doppler, and M-Mode. No LVH. LV internal dimensions are normal. Wall motion is normal. EF greater than or equal to 55%. Aortic valve is tricuspid. No evidence of stenosis by Doppler interrogation. Left atrium is normal at 3.6 cm. Mitral valve shows no prolapse. Trace MR. Right-sided chambers are grossly normal. Trace TR. TRANSINT:[id number] Voice Confirmation ID: [id number] DOCUMENT ID: [id number] ECHOCARDIOGRAM REPORT [id number] MILDREDZAINA Nolasco,IVETT Martinez MD at 1552 CC: [id number] DICTATION DATE: 01/13/20808 DESIGN SUPERVISOR: 01/13/20 0945 DIS IN 01/13/20 [facility] [address] [place] [address]
--- NOTE | 2020-01-15 09:28 | MORECARE ---
CASE MANAGEMENT DISCHARGE SUMMARY PATIENT: ZAINA LEVY UNIT: [id number] ADM DATE: 12/27/19 AGE: 64 : 59 SEX: M ROOM/BED: D.3505 AUTHOR: TALIB,DOC PHYSICIAN: REFERRING PHYSICIAN: RACHAEL BENOIT MD DATE OF SERVICE: 01/15/20 Discharge Plan Patient Name: ZAINA LEVY Facility: [facility]:[place] : 1955 Planned Disposition: Inpatient Rehab Anticipated Discharge Date: Discharge Date: 01/13/2020 Expected LOS: Initial Reviewer: [email or web address] Initial Review Date: 12/27/2019 Generated: 01/15/20 10:27 am Comments DCP- Discharge Planning Updated by [email or web address]: Carmen Kumar on 01/10/20 3:[address] CM faxed additional clinical to Uma, for the expatiated insurance appeal, @[phone], phone: [phone]. Also, called Uma to determine the status of appeal. Uma stated that the appeal has been overturned by the MD. Authorization for Inpatient rehab starts 01/10/20. Authorization #[id number]. CM spoke with Linda (rehab) and she is aware of same. Linda is aware of patient's low BP and HR. CM made and patient aware of the decision and need to have a stabilized BP and HR prior to his rehab admit. DCP- Discharge Planning Updated by [id number]: Carmen Kumar on 01/10/20 3:[address] Levy is asking why an UGI has not been done, why the patient is not on antibiotics and why the ascites culture was sent to [facility]. I explained to her that the MD's are awaiting the culture in order to determine the appropriate antibiotic for the bacteria. CM also informed of antibiotic resistance and importance of using the correct antibiotic. DCP- Discharge Planning Updated by [email or web address]: Regina Pham on 01/09/20 8:[address] late entry 01/08/20 @ 12:00 I spoke with at length about her concern for her . She was very upset. I explained to her what all I had done to try to get him into inpatient rehab along with setting up a P2P for Dr Benoit to try to overturn the denial. She did not understand the process. She then called insurance company and placed a grievance on the insurance MD for denying him. Per the , he has been now approved for inpatient rehab. I explained to her that we will need an Auth letter/number before we could get him to rehab. I also called Linda to tell her the above. She is rightfully worried about him and I think with good communication with her she felt better. DCP- Discharge Planning Updated by [email or web address]: Regina Pham on 01/08/20 6:[address] CALLED [facility] [place] TO CHECK ON SENT OUT LAB, IT IS STILL PENDING DCP- Discharge Planning Updated by [id number]: Regina Pham on 01/07/20 7:[address] BENOIT DID THE P2P ON 01/05 AND THE DENIAL WAS UP HELD WILL SPEAK WITH FAMILY ABOUT PLAN B DCP- Discharge Planning Updated by [id number]: Regina Pham on 01/06/20 12:[address] received a denial for Inpatient rehab, I have called Elisha at [phone] to set up the P2P. DCP- Discharge Planning Updated by [email or web address]: Regina Pham on 01/02/20 2:[address] Patient Name: ZAINA LEVY Admission Status: ER Accout number: [id number] Admission Date: 12-27-2019 : 1955 Admission Diagnosis:TRANSIENT ALTERATION OF AWARENESS Attending: RACHAEL BENOIT Current LOS: 6 Anticipated DC Date: Planned Disposition: Inpatient Rehab Primary Insurance: [facility] MEDICARE SOLUTIONS Discharge Planning Comments: CM met with patient 's to complete initial dc planning assessment. CM educated patient on the CM role and verbal consent given by patient to complete assessment. Patient lives at home with his where he is total care at this time. stated that he was discharged from [facility] and was so weak and could not walk. She stated that he fell 3 times there. She would like him to go to inpatient rehab here at [facility]. CM discussed availability of home health, rehab services, and medical equipment. He is current with [facility]. Patient has a walker, carola life, walker, wheelchair, shower chair, BSC, and ramp at home. Patient denied known discharge needs at this time. CM will continue to follow and will assist as needed with dc plans/needs. Museum Security Chief: Regina Pham DCPIA - Discharge Planning Initial Assessment Updated by [id number]: Regina Pham on 01/02/20 2:52 pm * Is the patient Alert and Oriented? Yes * How many steps to enter\exit or inside your home? RAMP * PCP CY * [facility] [place] * Preadmission Environment Home with Family * ADLs Total Dependent * Equipment Bedside Commode Cane Carola Lift Rolling Walker Shower Chair Walker Wheelchair * List name and contact numbers for known caregivers / representatives who currently or will assist patient after discharge: EREN ( ) [phone] * Verbal permission to speak to the caregivers and representatives has been obtained from the patient. N/A * Community resources currently utilized Home Health * Please name any agencies selected above. [facility] * Additional services required to return to the preadmission environment? Yes * Can the patient safely return to the preadmission environment? No * Has this patient been hospitalized within the prior 30 days at any hospital? Yes Coverage Notice Reviewer: [id number] - Regina Pham Notice Issued Date-Time: 01/02/2020 14:35 Notice Type: Patient Choice Letter Notice Delivered To: Family Member Relationship to Patient: Spouse Integrity Consultant Name: EREN Delivery Method: HAND - Hand Delivered Tamie Days: Prior Verbal Notification: Recipient Understood Notice: Yes Recipient Signature: Yes Med Rec Note Co-signed by Attending: Coverage Notice Comment: KENYA FOR INPATIENT REHAB AT [facility] Reviewer: [id number] Arlen Kumar Notice Issued Date-Time: 01/13/2020 15:42 Notice Type: IM Discharge Notice Notice Delivered To: Family Member Relationship to Patient: Spouse Integrity Consultant Name: Eren Levy Delivery Method: HAND - Hand Delivered Tamie Days: Prior Verbal Notification: Recipient Understood Notice: Yes Recipient Signature: Yes Med Rec Note Co-signed by Attending: Coverage Notice Comment: DC IMM Last DP export: 01/10/20 4:05 Patient Name: ZAINA LEVY Page [phone] at 0928 All edits/amendments must be made on the electronic document DICTATION DATE: 01/15/20927 BOTTOM TURNER: HAKEEM 01/15/20927 RPT#: [id number] DC DATE:01/13/20 STATUS: DIS IN [facility] [address] [place] [address] END OF REPORT
== END 2020-01-13 16:34 | DRG 433 ==
LOC: D.ER 15:12 → D.MS 19:21 → D.M2 19:21 → D.EDHOLD 19:21 → D.MS 23:55 → D.M2 01-09 02:27
PROVIDERS: Family Medicine; Internal Medicine Gastroenterology; Radiology Vascular & Interventional Radiology; ADMIT Family Medicine; ATTEND Family Medicine
PROC: 0W9G3ZZ Drainage of Peritoneal Cavity, Percutaneous Approach (ICD-10-PCS; principal; 2019-12-29 10:00)
DX: K74.60 Unspecified cirrhosis of liver (principal); R18.8 Other ascites; N39.0 Urinary tract infection, site not specified; D61.818 Other pancytopenia; K76.6 Portal hypertension; I48.92 Unspecified atrial flutter; B19.20 Unspecified viral hepatitis C without hepatic coma; J44.9 Chronic obstructive pulmonary disease, unspecified; K72.90 Hepatic failure, unspecified without coma; I48.0 Paroxysmal atrial fibrillation; N18.9 Chronic kidney disease, unspecified; R16.1 Splenomegaly, not elsewhere classified; R41.82 Altered mental status, unspecified